=== PATIENT | female | born 1960 | race Caucasian/White ===

== ENCOUNTER → 2016-07-19 | Outpatient (CLI) | payer OTHER | LOC: WI 07:05 | PROVIDERS: ATTEND Physician Assistant | DX: Z12.31 Encounter for screening mammogram for malignant neoplasm of breast (principal) | CPT/HCPCS: 77067; G0202 ==

== ENCOUNTER 2016-08-14 07:15 | Day surgery (SDC) | payer OTHER ==
[2016-08-14] MEDS ORDERED: PROPOFOL INJ 200 MG/20 ML VIAL IV ONE (07:23)
[2016-08-14 08:50] VITALS: BP 100/77
--- NOTE | 2016-08-14 14:27 | Operative Report ---
Operative Report DATE OF SURGERY: 08/14/16 Operative Report: The risks, benefits and alternatives of the procedure including risks of bleeding, perforation requiring surgery are expected to the patient detail and informed consent is obtained. Patient is taken back to the endoscopy suite and placed in a left, lateral decubital position. Timeout is called. Propofol medication is administered. A rectal examination was done which did not reveal any masses, tears or fissures. An Olympus video scope was inserted into the patient's rectum. The scope was then gradually advanced all the way to the cecum. The cecum was identified by the usual anatomical landmarks including the ileocecal valve as well as the appendiceal office. Photodocumentation was obtained. The scope was then sequentially pulled back creative rest segments of the colon including the ascending colon, hepatic flexure, transverse colon, splenic flexure, descending colon and finally into the rectosigmoid portions of the colon. Retroflexion maneuvers performed. PREOPERATIVE DIAGNOSIS: Personal history of polyps POSTOPERATIVE DIAGNOSIS: Small sessile possibly hyperplastic polyp that is noted status post biopsy. Internal hemorrhoids OPERATION: Colonoscopy with biopsy SURGEON: ROBERT SOARES ANESTHESIA: LMAC TISSUE REMOVED OR ALTERED: As noted above. COMPLICATIONS: None. ESTIMATED BLOOD LOSS: none. INTRAOPERATIVE FINDINGS: As described above. PROCEDURE: Patient tolerated procedure well. No immediate postprocedure complications are noted. Patient is discharged in good condition. Discharge date 08/14/2016. Discharge diet: Regular. Discharge activity: Regular. 2-3 week discuss findings. Five-year surveillance colonoscopy. Patient is instructed to call the office or proceed to the emergency room should there be any further problems or questions. We'll await on pathology.
== END 2016-08-14 08:52 | disposition home or self-care (01) ==
LOC: END 07:15
PROVIDERS: ATTEND Internal Medicine Gastroenterology
PROC: 0DBM8ZX Excision of Descending Colon, Via Natural or Artificial Opening Endoscopic, Diagnostic (ICD-10-PCS; principal; 2016-08-14 08:00)
DX: K63.5 Polyp of colon (principal); K64.8 Other hemorrhoids; Z88.8 Allergy status to other drugs, medicaments and biological substances
CPT/HCPCS: 45380; 88305 ×2; J2704; 810

== ENCOUNTER 2019-05-13 17:56 | Observation (INO) | payer OTHER ==
--- NOTE | 2019-05-13 19:01 | ER Document Report ---
ED Medical Screen (RME) - General Chief Complaint: Nausea/Vomiting Stated Complaint: NAUSEA/VOMITING/ABDOMINAL PAIN Time Seen by Provider: 05/13/19 18:56 Primary Care Provider: PARESH PATEL PA [Primary Care Provider] - Follow up as needed Mode of Arrival: Wheelchair Information source: Patient Notes: 58-year-old female presented to ED for abdominal pain constipation and nausea. She states she went to the urgent care yesterday they put her on MiraLAX gave her some nausea medicine and did an x-ray of her abdomen. They told her if she did not have a bowel movement in 24 hours she needed to come back to the doctor's office. She has not had a bowel movement since she was seen yesterday and the doctor's office called her around 5:00 and told her to go to the emergency room because she not had a bowel movement. Patient states they told her they were afraid she had a bowel blockage. She has not had a bowel movement at all since yesterday she is urinating. She states she has not had any temperatures at home. I have greeted and performed a rapid initial assessment of this patient. A comprehensive ED assessment and evaluation of the patient, analysis of test results and completion of medical decision making process will be conducted by an additional ED providers. TRAVEL OUTSIDE OF THE [place] IN LAST 30 DAYS: No - Related Data Allergies/Adverse Reactions: fentanyl Allergy (Severe, Verified 05/13/19 18:56) hard to awaken, ams day after midazolam [From Versed] Allergy (Severe, Verified 05/13/19 18:56) hard to awaken, ams day after Past Medical History - Past Medical History Cardiac Medical History: Denies: Hx Coronary Artery Disease, Hx Heart Attack, Hx Hypertension Pulmonary Medical History: Denies: Hx Asthma, Hx Bronchitis, Hx COPD, Hx Pneumonia Neurological Medical History: Denies: Hx Cerebrovascular Accident, Hx Seizures Musculoskeltal Medical History: Denies Hx Arthritis - RHEUMATOID Past Surgical History: Denies: Hx Hysterectomy, Hx Pacemaker - Immunizations Hx Diphtheria, Pertussis, Tetanus Vaccination: Yes Physical Exam - Vital signs Vitals: Temp Pulse Resp BP Pulse Ox 98.9 F 88 16 110/71 95 05/13/19 18:42 05/13/19 18:42 05/13/19 18:42 05/13/19 18:42 05/13/19 18:42 Course - Vital Signs Vital signs: Temp Pulse Resp BP Pulse Ox 98.9 F 88 16 110/71 95 05/13/19 18:42 05/13/19 18:42 05/13/19 18:42 05/13/19 18:42 05/13/19 18:42 Doctor's Discharge - Discharge Referrals: PARESH PATEL PA [Primary Care Provider] - Follow up as needed
[2019-05-13 20:58] LABS: ABSOLUTE BASOPHILS # (AUTO) 0.1 10^3/uL (0.0-0.2); ABSOLUTE EOSINOPHILS # (AUTO) 0.3 10^3/uL (0.0-0.6); ABSOLUTE LYMPHOCYTES (AUTO) 2.4 10^3/uL (0.5-4.7); ABSOLUTE MONOCYTES (AUTO) 0.8 10^3/uL (0.1-1.4); ABSOLUTE NEUT (AUTO) 4.1 10^3/uL (1.7-8.2); EOSINOPHILS % (AUTO) 3.6 % (0-6); HEMATOCRIT 42.1 % (36.0-47.0); HEMOGLOBIN 14.2 g/dL (12.0-15.5); LYMPHOCYTES % (AUTO) 31.2 % (13-45); MEAN CORPUSCULAR HEMOGLOBIN 31.9 pg (27.0-33.4); MEAN CORPUSCULAR HGB CONC 33.8 g/dL (32.0-36.0); MEAN CORPUSCULAR VOLUME 95 fl (80-97); MONOCYTES % (AUTO) 10.9 % (3-13); PLATELET COUNT 349 10^3/uL (150-450); RED BLOOD COUNT 4.45 10^6/uL (3.72-5.28); SEGMENTED NEUTROPHILS % (AUTO) 53.3 % (42-78); TOTAL CELLS COUNTED % (AUTO) 100 %; WHITE BLOOD COUNT 7.6 10^3/uL (4.0-10.5)
[2019-05-13 21:09] LABS: ALBUMIN 4.2 g/dL (3.5-5.0); ALKALINE PHOSPHATASE 69 U/L (38-126); ANION GAP 11 (5-19); ASPARTATE AMINO TRANSFERASE 34 U/L (14-36); BILIRUBIN,DIRECT 0.2 mg/dL (0.0-0.4); BILIRUBIN,TOTAL 0.5 mg/dL (0.2-1.3); BLOOD UREA NITROGEN 13 mg/dL (7-20); CALCIUM 9.3 mg/dL (8.4-10.2); CARBON DIOXIDE 28 mmol/L (22-30); CHLORIDE 95 mmol/L (98-107); GLUCOSE 96 mg/dL (75-110); POTASSIUM 4.4 mmol/L (3.6-5.0); TOTAL PROTEIN 7.4 g/dL (6.3-8.2)
[2019-05-13 21:10] LABS: APPEARANCE,URINE CLEAR; BILIRUBIN,URINE NEGATIVE (NEGATIVE); COLOR,URINE YELLOW; GLUCOSE, URINE NEGATIVE (NEGATIVE); KETONES,URINE NEGATIVE (NEGATIVE); PROTEIN,URINE NEGATIVE (NEGATIVE); URINE SPECIFIC GRAVITY 1.017
--- NOTE | 2019-05-13 23:39 | RADIOLOGY REPORT (SQ) ---
EXAM DESCRIPTION: CT ABDOMEN PELVIS WITH IV CONTRAST COMPLETED DATE/TME: 05/13/2019 00:00 CLINICAL HISTORY: 58 years, Female, abdominal pain nause vomiting COMPARISON: None. TECHNIQUE: 434 Images stored on PACS. All CT scanners at this facility use dose modulation, iterative reconstruction, and/or weight based dosing when appropriate to reduce radiation dose to as low as reasonably achievable (ALARA). [facility]: Dose Right [facility]: CareDose [facility]: Dose Right [facility]: Teradose 4D [facility]: Wikirin LIMITATIONS: None. FINDINGS: Limited evaluation of the lung bases shows subsegmental atelectasis in each lung base. Osseous structures show pars defects at the L5-S1 level with grade 2 spondylolisthesis. Associated degenerative changes. Small hiatal hernia noted. The liver, spleen, adrenal glands, pancreas, kidneys are unremarkable. The gallbladder is present. Subjective gallbladder wall thickening with pericholecystic fluid and edema. Correlate for the possibility of cholecystitis. No evidence for bowel obstruction. No free air or free fluid. Normal appendix. IMPRESSION: Findings suspicious for acute cholecystitis. Small hiatal hernia. Pars defects at L5/S1 with grade 2 spondylolisthesis. TECHNICAL DOCUMENTATION: Quality ID # 436: Final reports with documentation of one or more dose reduction techniques (e.g., Automated exposure control, adjustment of the mA and/or kV according to patient size, use of iterative reconstruction technique) copyright 2011 [email or web address] [facility] [employer]- All Rights Reserved
[2019-05-14] MEDS ORDERED: NORMAL SALINE 1000 ML 1,000 ML IV ONE ×2 (02:51→04:48)
--- NOTE | 2019-05-14 03:56 | RADIOLOGY REPORT (SQ) ---
US ABDOMEN LIMITED HISTORY: RUQ abdominal pain COMPARISON: none TECHNIQUE: Real-time sonographic images of the right upper quadrant of the abdomen were obtained including color flow analysis. FINDINGS: The liver is normal in appearance and measures 13.1 cm in length. Imaged hepatic and portal veins are patent with normal directional flow. No intrahepatic or extrahepatic biliary ductal dilatation. 1.9-mm common hepatic duct. The gallbladder contains multiple mobile calculi and a thickened wall up to 7 mm with subserosal edema and perhaps trace pericholecystic fluid. Negative sonographic Kidd's sign. Visualized portions of the pancreas are unremarkable. The right kidney measures 9.7 cm in length. No obvious renal calculi but images are limited. No hydronephrosis. IMPRESSION: Cholelithiasis and probable cholecystitis. No biliary obstruction.
--- NOTE | 2019-05-14 04:07 | ER Document Report ---
ED General - General Chief Complaint: Constipation Stated Complaint: NAUSEA/VOMITING/ABDOMINAL PAIN Time Seen by Provider: 05/13/19 18:56 Primary Care Provider: PARESH PATEL PA [NO LOCAL MD] - Follow up as needed Mode of Arrival: Wheelchair Information source: Patient TRAVEL OUTSIDE OF THE [place] IN LAST 30 DAYS: No - HPI Onset: Other - over the last few days Onset/Duration: Gradual Quality of pain: Sharp Severity: Moderate Pain Level: 3 Associated symptoms: Nausea, Vomiting, Other - abdominal pain Exacerbated by: Other - food Relieved by: Other - not eating or drinking Similar symptoms previously: No Recently seen / treated by doctor: No Notes: 58 year old female with no significant PMH here for several days of abdominal pains, abdominal distention, decreased stool output, and nausea/vomiting. The patient was seen 2 days ago for the same symptoms and she was told she likely was constipated based on an Xray. The patient was treated with Miralax and she did not have much stool output so she was told to go to an ER to rule out an intestinal obstruction. The patient denies high fevers, chills, sweats. The patient has no history of gallbladder or kidney problems. - Related Data Allergies/Adverse Reactions: fentanyl Allergy (Severe, Verified 05/13/19 18:56) hard to awaken, ams day after midazolam [From Versed] Allergy (Severe, Verified 05/13/19 18:56) hard to awaken, ams day after Past Medical History - General Information source: Patient - Social History Smoking Status: Never Smoker Frequency of alcohol use: Occasional Drug Abuse: None Lives with: Family Family History: Reviewed & Not Pertinent Patient has suicidal ideation: No Patient has homicidal ideation: No - Past Medical History Cardiac Medical History: Denies: Hx Coronary Artery Disease, Hx Heart Attack, Hx Hypertension Pulmonary Medical History: Denies: Hx Asthma, Hx Bronchitis, Hx COPD, Hx Pneumonia Neurological Medical History: Denies: Hx Cerebrovascular Accident, Hx Seizures Musculoskeletal Medical History: Denies Hx Arthritis - RHEUMATOID Past Surgical History: Denies: Hx Hysterectomy, Hx Pacemaker - Immunizations Hx Diphtheria, Pertussis, Tetanus Vaccination: Yes Review of Systems - Review of Systems Constitutional: No symptoms reported EENT: No symptoms reported Cardiovascular: No symptoms reported Respiratory: No symptoms reported Gastrointestinal: Abdomen distended, Abdominal pain, Nausea, Vomiting, Constipation, Poor appetite Genitourinary: No symptoms reported Female Genitourinary: No symptoms reported Musculoskeletal: No symptoms reported Skin: No symptoms reported Hematologic/Lymphatic: No symptoms reported Neurological/Psychological: No symptoms reported -: Yes All other systems reviewed and negative Physical Exam - Vital signs Vitals: Temp Pulse Resp BP Pulse Ox 98.9 F 88 16 110/71 95 05/13/19 18:42 05/13/19 18:42 05/13/19 18:42 05/13/19 18:42 05/13/19 18:42 - Notes Notes: GENERAL: Well-appearing, well-nourished and in no acute distress. HEAD: Atraumatic, normocephalic. EYES: Pupils equal round and reactive to light, extraocular movements intact, sclera anicteric, conjunctiva are normal. ENT: TMs normal, nares patent, oropharynx clear without exudates. Moist mucous membranes. NECK: Normal range of motion, supple without lymphadenopathy or JVD. LUNGS: Breath sounds clear to auscultation bilaterally and equal. No wheezes rales or rhonchi. HEART: Regular rate and rhythm without murmurs, rubs or gallops. ABDOMEN: Soft, mild to moderate tenderness in RUQ, normoactive bowel sounds. No guarding, no rebound. No masses appreciated. EXTREMITIES: Normal range of motion, no pitting or edema. No clubbing or cyanosis. NEUROLOGICAL: Cranial nerves II through XII grossly intact. Normal speech, normal gait. PSYCH: Normal mood, normal affect. SKIN: Warm, Dry, normal turgor, no rashes or lesions noted. Course - Re-evaluation Re-evalutation: 05/14/19 04:47 The patient had lab work an abdominal/pelvis CT before I saw and evaluated her. Labs were unremarkable but CT showed signs of cholecystitis. Because the patient has normal labs and mild RUQ tenderness on exam, a follow up RUQ US was done which was in fact concerning for acute cholecystitis. Dr. Schneider of Surgery was consulted. Dr. Schneider saw the patient in the ER and he plans to remove her gallbladder today. Will given a dose of Zosyn in the ER. - Vital Signs Vital signs: Temp Pulse Resp BP Pulse Ox 97.9 F 72 20 113/75 96 05/14/19 03:36 05/14/19 03:36 05/14/19 03:36 05/14/19 03:36 05/14/19 03:36 - Laboratory Result Diagrams: 05/13/19 20:20 05/13/19 20:20 Laboratory results interpreted by me: 05/13/19 05/13/19 20:20 20:20 Sodium 133.6 L Chloride 95 L Urine Urobilinogen 2.0 H Urine Ascorbic Acid 40 H Discharge - Discharge Clinical Impression: Cholecystitis Condition: Stable Disposition: ADMITTED INPATIENT Admitting Provider: Surgicalist Unit Admitted: Surgical Floor Referrals: PARESH PATEL PA [NO LOCAL MD] - Follow up as needed
--- NOTE | 2019-05-14 04:38 | PDOC H&P ---
History of Present Illness Admission Date/PCP: RIGOBERTO COTTRELL Patient complains of: RUQ abdominal pain x 4 days History of Present Illness: MILKA BROWN is a 58 year old female, healthy with a 4 day hx of right upper quadrant abdominal pain, intense nausea, vomiting, who presented to the emergency room with above symptoms and underwent an ultrasound of the gallbladder revealing cholelithiasis with thickening of the gallbladder wall as per cholecystitis. Her blood work including CBC and CMP is within normal limits. Past Medical History Cardiac Medical History: Denies: Coronary Artery Disease, Myocardial Infarction, Hypertension Pulmonary Medical History: Denies: Asthma, Bronchitis, Chronic Obstructive Pulmonary Disease (COPD), Pneumonia Neurological Medical History: Denies: Seizures Musculoskeltal Medical History: Denies: Arthritis - RHEUMATOID Hematology: Denies: Anemia Past Surgical History Past Surgical History: Denies: Hysterectomy, Pacemaker Social History Smoking Status: Never Smoker Family History Family History: Reviewed & Not Pertinent Parental Family History Reviewed: No Children Family History Reviewed: No Sibling(s) Family History Reviewed.: No Medication/Allergy Home Medications: Fluticasone Propionate [Flonase Nasal [place] 50 Mcg/[place] 16 gm] 1 spray NASL DAILY 08/09/16 Multivit-Min/Iron Fum/Folic AC [Vkymv-Ffvoqhk-Kfgizoln Tablet] 1 tab PO DAILY 08/09/16 Ciprofloxacin HCl [Cipro 500 mg Tablet] 500 mg PO BID 08/14/16 Cranberry [Cranberry 1000 mg Capsule] 1,000 mg PO DAILY 08/14/16 Phenazopyridine HCl [Azo Urinary Pain Relief] 1 tab PO ASDIR PRN 08/14/16 Allergies/Adverse Reactions: fentanyl Allergy (Severe, Verified 05/13/19 18:56) hard to awaken, ams day after midazolam [From Versed] Allergy (Severe, Verified 05/13/19 18:56) hard to awaken, ams day after Physical Exam Vital Signs: Temp Pulse Resp BP Pulse Ox 97.9 F 72 20 113/75 96 05/14/19 03:36 05/14/19 03:36 05/14/19 03:36 05/14/19 03:36 05/14/19 03:36 Intake & Output 05/12/19 05/13/19 05/14/19 06:59 06:59 06:59 Weight 80.4 kg General appearance: PRESENT: no acute distress, thin, well-developed Head exam: PRESENT: atraumatic, normocephalic Eye exam: PRESENT: EOMI Mouth exam: PRESENT: moist, neck supple Neck exam: PRESENT: full ROM Respiratory exam: PRESENT: clear to auscultation prisca Cardiovascular exam: PRESENT: RRR GI/Abdominal exam: PRESENT: hypoactive bowel sounds, Kidd's sign - Positive, soft, tenderness - In the right upper quadrant Rectal exam: PRESENT: deferred Extremities exam: PRESENT: full ROM Musculoskeletal exam: PRESENT: full ROM Neurological exam: PRESENT: alert, awake, oriented to time, CN II-XII grossly intact Psychiatric exam: PRESENT: appropriate affect Skin exam: PRESENT: warm Results Laboratory Results: 05/13/19 20:20 05/13/19 20:20 05/13/19 05/13/19 05/13/19 20:20 20:20 20:20 WBC 7.6 RBC 4.45 Hgb 14.2 Hct 42.1 MCV 95 MCH 31.9 MCHC 33.8 RDW 13.0 Plt Count 349 Seg Neutrophils % 53.3 Sodium 133.6 L Potassium 4.4 Chloride 95 L Carbon Dioxide 28 Anion Gap 11 BUN 13 Creatinine 0.79 Est GFR ( Amer) > 60 Glucose 96 Calcium 9.3 Total Bilirubin 0.5 AST 34 Alkaline Phosphatase 69 Total Protein 7.4 Albumin 4.2 Lipase 146.4 Urine Color YELLOW Urine Appearance CLEAR Urine pH 5.0 Ur Specific [place] 1.017 Urine Protein NEGATIVE Urine Glucose (UA) NEGATIVE Urine Ketones NEGATIVE Urine Blood NEGATIVE Urine RBC (Auto) 1 Impressions: Abdomen/Pelvis CT 05/13/19 00:00 IMPRESSION: Findings suspicious for acute cholecystitis. Small hiatal hernia. Pars defects at L5/S1 with grade 2 spondylolisthesis. TECHNICAL DOCUMENTATION: Quality ID # 436: Final reports with documentation of one or more dose reduction techniques (e.g., Automated exposure control, adjustment of the mA and/or kV according to patient size, use of iterative reconstruction technique) copyright 2011 [employer] [facility] [employer]- All Rights Reserved Abdomen Ultrasound 05/14/19 02:50 IMPRESSION: Cholelithiasis and probable cholecystitis. No biliary obstruction. Assessment & Plan - Diagnosis (1) Cholelithiasis and cholecystitis without obstruction Qualifiers: Cholelithiasis location: gallbladder Cholecystitis acuity: chronic Qualified Code(s): K80.10 - Calculus of gallbladder with chronic cholecystitis without obstruction Is this a current diagnosis for this admission?: Yes - Plan Summary Plan Summary: Assessment: Right upper quadrant pain, nausea, vomiting for 4 days Blood work within normal limits Ultrasound of the gallbladder reveals cholelithiasis with gallbladder wall thickening expiratory cholecystitis Plan: Admit N.p.o. IV fluids Laparoscopic cystectomy, possible open, possible cholangiogram today
[2019-05-14] MEDS ORDERED: CEFOXITIN 1 GM/D5W RTU 1 GM/50 ML RTUPB IV PRN (04:45)
[2019-05-14] MEDS ORDERED: FAMOTIDINE INJ/PF 20 MG/2 ML SDV IV ONE (05:00)
[2019-05-14] MEDS: ACETAMINOPHEN 1,000 MG/100 ML RTUPB IV SCH ×2 (05:51→11:17)
[2019-05-14] MEDS: NORMAL SALINE 1000 ML 1,000 ML IV PRN ×2 (06:42→14:50)
--- NOTE | 2019-05-14 07:59 | EKG REPORT ---
SEVERITY:- BORDERLINE ECG - SINUS RHYTHM BORDERLINE T ABNORMALITIES, ANTERIOR LEADS : Confirmed by: Donna Samuel MD 14-May-2019 07:59:12
[2019-05-14] MEDS ORDERED: ONDANSETRON HCL INJ/PF 4 MG/2 ML SDV ONE (10:43)
[2019-05-14] MEDS ORDERED: GLYCOPYRROLATE 1 MG/5 ML VIAL ONE (10:43)
[2019-05-14] MEDS ORDERED: DEXAMETHASONE SOD PHOSPHATE INJ 4 MG/1 ML VIAL ONE (10:43)
[2019-05-14] MEDS ORDERED: ROCURONIUM BROMIDE INJ 50 MG/5 ML VIAL IV ONE (10:43)
[2019-05-14] MEDS ORDERED: LIDOCAINE 2% INJ-PF (20 MG/ML) 2 ML AMPUL ONE (10:43)
[2019-05-14] MEDS ORDERED: NEOSTIGMINE METHYLSULFATE 10 MG/10 ML VIAL ONE (10:43)
[2019-05-14] MEDS: ONDANSETRON HCL INJ/PF 4 MG/2 ML SDV IV PRN ×2 (11:17→20:29)
[2019-05-14] MEDS ORDERED: FENTANYL CITRATE INJ/PF 250 MCG/5 ML AMPULE ONE (15:45)
[2019-05-14] MEDS ORDERED: PROPOFOL INJ 200 MG/20 ML VIAL IV ONE (15:45)
[2019-05-14] MEDS ORDERED: MIDAZOLAM 2 MG/2 ML INJ ONE (15:56)
[2019-05-14] MEDS ORDERED: DEXTROSE IV ONE (16:03)
[2019-05-14] MEDS ORDERED: CEFOXITIN IV ONE (16:03)
[2019-05-14] MEDS: BUPIVACAINE HCL 0.25 % INJ/PF (2.5 MG/1 ML) 30 ML VIAL ONE ×2 (16:05→16:17)
[2019-05-14] MEDS ORDERED: CEFOXITIN 1 GM/D5W RTU 1 GM/50 ML RTUPB IV ONE (16:18)
[2019-05-14] MEDS ORDERED: PROMETHAZINE HCL INJ 25 MG/1 ML VIAL IV PRN (17:10)
[2019-05-14] MEDS ORDERED: FENTANYL CITRATE INJ/PF 100 MCG/2 ML AMPUL IV PRN (17:10)
[2019-05-14] MEDS ORDERED: MEPERIDINE HCL/PF INJ 25 MG/1 ML DISP.SYRIN IV PRN (17:10)
[2019-05-14] MEDS ORDERED: DIPHENHYDRAMINE HCL 50 MG/ML VIAL IV PRN (17:10)
[2019-05-14] MEDS ORDERED: MORPHINE SULFATE 10 MG/ML INJ IV PRN (17:10)
--- NOTE | 2019-05-14 17:17 | Operative Report ---
Nonrecallable Operative Report DATE OF SURGERY: 05/14/19 PREOPERATIVE DIAGNOSIS: Acute cholecystitis POSTOPERATIVE DIAGNOSIS: Same as above OPERATION: Laparoscopic cholecystectomy SURGEON: JACKIE BELTRAN ANESTHESIA: GA TISSUE REMOVED OR ALTERED: Gallbladder COMPLICATIONS: None apparent ESTIMATED BLOOD LOSS: Minimal PROCEDURE: Drains/implants: None. Procedure in detail: After informed consent was obtained, the patient was brought to the operating room and laid in the supine position. The area of the abdomen was prepped and draped in a normal sterile fashion. An incision was created in the supraumbilical position. Dissection was carried through the subcutaneous tissues using sharp and blunt dissection. The cicatrix was identified, grasped with a Sameer clamp, and retracted upwards. The linea alba fascia was incised sharply, the abdomen was entered sharply. The balloon trocar was inserted, and pneumoperitoneum was achieved. A subxiphoid 5 mm port was then placed under direct laparoscopic visualization. 2 more 5 mm ports were placed in the right upper quadrant in similar fashion. Atraumatic graspers were placed through the 5 mm ports. The gallbladder was retracted cephalad and laterally. Dissection was begun in the triangle of [place]. The gallbladder was acutely inflamed. Omentum was freed from the gallbladder using a mixture of sharp and blunt dissection. The cystic duct and cystic artery were then fully visualized and skeletonized, seeing the liver through the triangle. Once the critical view of safety was obtained, the cystic duct and cystic artery were then clipped and cut with laparoscopic instruments. The gallbladder was removed from the liver using Bovie electrocautery. The gallbladder was grasped with a large clamp, and pulled out through the umbilicus. The camera was reinserted. The hilum was inspected. It was found to be free of any leakage of blood or bile. Once this was confirmed, the 5 mm trochars were removed under direct laparoscopic visualization. The supraumbilical trocar was removed, and pneumoperitoneum was relieved. The supraumbilical fascia was closed using 0 Vicryl suture in [id number] fashion. The overlying skin was closed using 4-0 Vicryl Rapide suture in subcuticular fashion. All sponge, instrument, needle counts were correct x2. Condition: Stable.
[2019-05-14] MEDS ORDERED: ACETAMINOPHEN 1,000 MG/100 ML RTUPB IV ONE (18:15)
[2019-05-14] MEDS: HYDROCODONE/ACETAMINOPHEN 10-325 MG TABLET PO PRN (20:28)
[2019-05-14] MEDS ORDERED: FAMOTIDINE INJ/PF 20 MG/2 ML SDV IV SCH (22:00)
[2019-05-14] MEDS: FAMOTIDINE 20 MG TABLET PO SCH (22:09)
[2019-05-15] MEDS: HYDROCODONE/ACETAMINOPHEN 10-325 MG TABLET PO PRN ×2 (01:09→05:16)
[2019-05-15 04:57] LABS: HEMATOCRIT 40.7 % (36.0-47.0); MEAN CORPUSCULAR HEMOGLOBIN 32.3 pg (27.0-33.4); MEAN CORPUSCULAR HGB CONC 34.4 g/dL (32.0-36.0); MEAN CORPUSCULAR VOLUME 94 fl (80-97); PLATELET COUNT 317 10^3/uL (150-450); RED BLOOD COUNT 4.35 10^6/uL (3.72-5.28); WHITE BLOOD COUNT 9.9 10^3/uL (4.0-10.5)
[2019-05-15 05:17] LABS: ALBUMIN 4.1 g/dL (3.5-5.0); ALKALINE PHOSPHATASE 77 U/L (38-126); ANION GAP 8 (5-19); ASPARTATE AMINO TRANSFERASE 86 U/L (14-36); BILIRUBIN,DIRECT 0.3 mg/dL (0.0-0.4); BILIRUBIN,TOTAL 0.4 mg/dL (0.2-1.3); BLOOD UREA NITROGEN 5 mg/dL (7-20); CALCIUM 8.9 mg/dL (8.4-10.2); CARBON DIOXIDE 25 mmol/L (22-30); CHLORIDE 106 mmol/L (98-107); GLUCOSE 113 mg/dL (75-110); POTASSIUM 4.9 mmol/L (3.6-5.0); TOTAL PROTEIN 7.3 g/dL (6.3-8.2)
[2019-05-15] MEDS ORDERED: IBUPROFEN 800 MG TABLET PO SCH (08:00)
[2019-05-15 08:47] VITALS: BP 140/81
[2019-05-15] MEDS: FAMOTIDINE 20 MG TABLET PO SCH (09:06)
--- NOTE | 2019-05-15 09:17 | PDOC DISCHARGE SUMMARY ---
General - Admit/Disc Date/PCP Admission Date/Primary Care Provider: 05/14/19 05:08 RIGOBERTO COTTRELL Discharge Date: 05/15/19 - Discharge Diagnosis Final Diagnosis: Acute cholecystitis with cholelithiasis - Assessment Summary: The patient is a healthy 58-year-old female who presented to the emergency room on May 13, 2019 complaining of right upper quadrant pain and epigastric pain emesis. An ultrasound of the gallbladder was done revealing thickened gallbladder wall with cholelithiasis, her blood work was negative. She underwent uneventful laparoscopic cystectomy in May and her postop course was unremarkable. On the day of discharge May 15, 2019 the patient vital signs are stable, she had no complaints, she presented with flatus, her physical exam was unremarkable with abdomen soft, not distended, not tender, all incisions were clean, dry, and intact. Her blood work was within normal limits. Discharge orders: Home today May 15, 2019 Follow-up with your medical doctor within 1 to 2 weeks Follow-up with Dr. Marsh in the office in 2 weeks Regular diet Activity as tolerated without imitations Patient can drive, go up and down the stairs, and return to work when she feels Shower only for 2 weeks then the patient can tub bathe No wound care needed Resume home medications Tylenol only by mouth as needed for pain - Additional Information Resuscitation Status: Full Code Discharge Diet: Regular Discharge Activity: Activity As Tolerated, No tub bath - 2 weeks, she can shower anytime Referrals: PARESH PATEL PA [NO LOCAL MD] - Follow up as needed Home Medications: Acetaminophen [Acetaminophen Extra Strength] 1,000 mg PO Q4HP PRN 05/14/19 Alendronate Sodium 70 mg PO MO 05/14/19 Citalopram Hydrobromide [Celexa 20 mg Tablet] 20 mg PO DAILY 05/14/19 Cranberry Fruit [Cranberry] 1,000 mg PO DAILY 05/14/19 Ergocalciferol (Vitamin D2) [Drisdol 50,000 unit (1.25MG) Capsule] 50,000 unit PO LAWRENCE 05/14/19 Esomeprazole Magnesium [Nexium] 20 mg PO QAM 05/14/19 Multivitamin [Multiple Vitamins] 1 tab PO DAILY 05/14/19 Polyethylene Glycol 3350 [Miralax Powder 17 gm/Packet] 17 gm PO DAILY 05/14/19 Prempro 1 tab PO DAILY 05/14/19 History of Present Illiness History of Present Illness: MILKA BROWN is a 58 year old female, healthy with a 4 day hx of right upper quadrant abdominal pain, intense nausea, vomiting, who presented to the emergency room with above symptoms and underwent an ultrasound of the gallbladder revealing cholelithiasis with thickening of the gallbladder wall as per cholecystitis. Her blood work including CBC and CMP is within normal limits. Physical Exam Vital Signs: Temp Pulse Resp BP Pulse Ox 97.4 F 61 16 140/81 H 97 05/15/19 08:22 05/15/19 08:22 05/15/19 08:22 05/15/19 08:22 05/15/19 08:22 Intake & Output 05/14/19 05/15/19 05/16/19 06:59 06:59 06:59 Intake Total 2100 4550 Output Total 2820 Balance 2100 1730 Weight 80.4 kg 82.6 kg Results Laboratory Results: WBC 9.9 10^3/uL (4.0-10.5) 05/15/19 04:07 RBC 4.35 10^6/uL (3.72-5.28) 05/15/19 04:07 Hgb 14.0 g/dL (12.0-15.5) 05/15/19 04:07 Hct 40.7 % (36.0-47.0) 05/15/19 04:07 MCV 94 fl (80-97) 05/15/19 04:07 MCH 32.3 pg (27.0-33.4) 05/15/19 04:07 MCHC 34.4 g/dL (32.0-36.0) 05/15/19 04:07 RDW 13.0 % (11.5-14.0) 05/15/19 04:07 Plt Count 317 10^3/uL (150-450) 05/15/19 04:07 Lymph % (Auto) 31.2 % (13-45) 05/13/19 20:20 [place]te % (Auto) 10.9 % (3-13) 05/13/19 20:20 Eos % (Auto) 3.6 % (0-6) 05/13/19 20:20 Baso % (Auto) 1.0 % (0-2) 05/13/19 20:20 Absolute Neuts (auto) 4.1 10^3/uL (1.7-8.2) 05/13/19 20:20 Absolute Lymphs (auto) 2.4 10^3/uL (0.5-4.7) 05/13/19 20:20 Absolute Monos (auto) 0.8 10^3/uL (0.1-1.4) 05/13/19 20:20 Absolute Eos (auto) 0.3 10^3/uL (0.0-0.6) 05/13/19 20:20 Absolute Basos (auto) 0.1 10^3/uL (0.0-0.2) 05/13/19 20:20 Seg Neutrophils % 53.3 % (42-78) 05/13/19 20:20 Sodium 139.2 mmol/L (137-145) 05/15/19 04:07 Potassium 4.9 mmol/L (3.6-5.0) 05/15/19 04:07 Chloride 106 mmol/L (98-107) 05/15/19 04:07 Carbon Dioxide 25 mmol/L (22-30) 05/15/19 04:07 Anion Gap 8 (5-19) 05/15/19 04:07 BUN 5 mg/dL (7-20) L 05/15/19 04:07 Creatinine 0.64 mg/dL (0.52-1.25) 05/15/19 04:07 Est GFR ( Amer) > 60 (>60) 05/15/19 04:07 Est GFR (MDRD) Non-Af > 60 (>60) 05/15/19 04:07 Glucose 113 mg/dL (75-110) H 05/15/19 04:07 Calcium 8.9 mg/dL (8.4-10.2) 05/15/19 04:07 Total Bilirubin 0.4 mg/dL (0.2-1.3) 05/15/19 04:07 Direct Bilirubin 0.3 mg/dL (0.0-0.4) 05/15/19 04:07 Neonat Total Bilirubin Not Reportable 05/15/19 04:07 Neonat Direct Bilirubin Not Reportable 02/06/20 04:07 Neonat Indirect Bili Not Reportable 05/15/19 04:07 AST 86 U/L (14-36) H 05/15/19 04:07 ALT 59 U/L (<35) 05/15/19 04:07 Alkaline Phosphatase 77 U/L (38-126) 05/15/19 04:07 Total Protein 7.3 g/dL (6.3-8.2) 05/15/19 04:07 Albumin 4.1 g/dL (3.5-5.0) 05/15/19 04:07 Lipase 146.4 U/L (23-300) 05/13/19 20:20 Urine Color YELLOW 05/13/19 20:20 Urine Appearance CLEAR 05/13/19 20:20 Urine pH 5.0 (5.0-9.0) 05/13/19 20:20 Ur Specific Chester 1.017 05/13/19 20:20 Urine Protein NEGATIVE mg/dL (NEGATIVE) 05/13/19 20:20 Urine Glucose (UA) NEGATIVE mg/dL (NEGATIVE) 05/13/19 20:20 Urine Ketones NEGATIVE mg/dL (NEGATIVE) 05/13/19 20:20 Urine Blood NEGATIVE (NEGATIVE) 05/13/19 20:20 Urine Nitrite (Reflex) NEGATIVE (NEGATIVE) 05/13/19 20:20 Urine Bilirubin NEGATIVE (NEGATIVE) 05/13/19 20:20 Urine Urobilinogen 2.0 mg/dL (<2.0) H 05/13/19 20:20 Leukocyte Esterase Rfl NEGATIVE (NEGATIVE) 05/13/19 20:20 Urine RBC (Auto) 1 /HPF 05/13/19 20:20 Urine Bacteria (Auto) TRACE /HPF 05/13/19 20:20 Urine WBC (Reflex) 1 /HPF 05/13/19 20:20 Squamous Epi Cells Auto 1 /HPF 05/13/19 20:20 Urine Mucus (Auto) RARE /LPF 05/13/19 20:20 Urine Ascorbic Acid 40 (NEGATIVE) H 05/13/19 20:20 Impressions: Abdomen/Pelvis CT 05/13/19 00:00 IMPRESSION: Findings suspicious for acute cholecystitis. Small hiatal hernia. Pars defects at L5/S1 with grade 2 spondylolisthesis. TECHNICAL DOCUMENTATION: Quality ID # 436: Final reports with documentation of one or more dose reduction techniques (e.g., Automated exposure control, adjustment of the mA and/or kV according to patient size, use of iterative reconstruction technique) copyright 2011 [employer]- All Rights Reserved Abdomen Ultrasound 05/14/19 02:50 IMPRESSION: Cholelithiasis and probable cholecystitis. No biliary obstruction.
== END 2019-05-15 10:19 | disposition home or self-care (01) ==
LOC: ER 17:56 → EH 05-14 05:08 → INTOOBSV 05-14 05:08 → 3W 05-14 08:44
PROVIDERS: ATTEND Surgery
DX: K80.12 Calculus of gallbladder with acute and chronic cholecystitis without obstruction (principal); K44.9 Diaphragmatic hernia without obstruction or gangrene; K59.00 Constipation, unspecified; Z79.899 Other long term (current) drug therapy
CPT/HCPCS: 47562; 99285; 96360; 36415 ×2; 83690; 85025; 85027; 80053 ×2; 81001; 88304 ×2; 76705; 74177; 93005; 93010; 00790; G0378 ×2; J2250; J3490 ×3; J1100; J3010; J0694; J2710; J2405; J7030; J2704; S0028; J0131; 790

== ENCOUNTER 2019-07-09 16:45 | Emergency (ER) | payer OTHER ==
[2019-07-09 17:33] LABS: HEMATOCRIT 40.9 % (36.0-47.0); HEMOGLOBIN 14.3 g/dL (12.0-15.5); MEAN CORPUSCULAR HEMOGLOBIN 32.4 pg (27.0-33.4); MEAN CORPUSCULAR HGB CONC 34.8 g/dL (32.0-36.0); MEAN CORPUSCULAR VOLUME 93 fl (80-97); PLATELET COUNT 339 10^3/uL (150-450)
[2019-07-09 17:45] LABS: A TYPE INFLUENZA AG NEGATIVE (NEGATIVE); B INFLUENZA AG NEGATIVE (NEGATIVE)
[2019-07-09 17:54] LABS: ANION GAP 8 (5-19); BLOOD UREA NITROGEN 15 mg/dL (7-20); CALCIUM 9.4 mg/dL (8.4-10.2); CARBON DIOXIDE 22 mmol/L (22-30); CHLORIDE 107 mmol/L (98-107); GLUCOSE 96 mg/dL (75-110); POTASSIUM 4.3 mmol/L (3.6-5.0)
--- NOTE | 2019-07-09 18:05 | RADIOLOGY REPORT (SQ) ---
EXAM DESCRIPTION: CHEST SINGLE VIEW IMAGES COMPLETED DATE/TIME: 07/09/2019 5:53 pm REASON FOR STUDY: shortness of breath COMPARISON: None. EXAM PARAMETERS: NUMBER OF VIEWS: One view. TECHNIQUE: Single frontal radiographic view of the chest acquired. RADIATION DOSE: NA LIMITATIONS: None. FINDINGS: LUNGS AND PLEURA: Low lung volumes limits the examination. No acute pulmonary consolidat ion. No pneumothorax or pleural effusion. MEDIASTINUM AND HILAR STRUCTURES: No masses. Contour normal. HEART AND VASCULAR STRUCTURES: Heart normal in size. Normal vasculature. BONES: Dextroconvex scoliosis thoracic spine. HARDWARE: None in the chest. OTHER: No other significant finding. IMPRESSION: 1. Lung volumes limits the examination. NO ACUTE RADIOGRAPHIC FINDING IN THE CHEST. 2. Dextroconvex coal thoracic spine. TECHNICAL DOCUMENTATION: JOB ID: [id number] 2010 [employer]- All Rights Reserved Reading location - IP/workstation name: [email or web address]
--- NOTE | 2019-07-09 19:35 | ER Document Report ---
ED General - General Chief Complaint: Cough Stated Complaint: COUGH Time Seen by Provider: 07/09/19 18:11 Primary Care Provider: SPARKLE MCNAMARA FNP [Primary Care Provider] - Follow up as needed Notes: 58-year-old female presents emergency department complaining of increased cough for the past day associated with increasing shortness of breath. Patient states that she called telehealth and Dr. Little called her in a prescription for Tessalon Perles today. 1 week ago she was complaining of similar symptoms and dave julian called her in cefdinir for strep throat based off of the telehealth examination. Patient states she is not feeling any better. Patient does complain of right-sided chest pain that she states feels like a pleuritic stretching pain that is been going on since this morning. It is associated with rhinorrhea, postnasal drip and a dry cough. States her highest temperature has been 99.7. Denies any travel, does not have any known exposure to Covid-19 patients. TRAVEL OUTSIDE OF THE [place] IN LAST 30 DAYS: No - Related Data Allergies/Adverse Reactions: fentanyl Allergy (Severe, Verified 05/13/19 18:56) hard to awaken, ams day after midazolam [From Versed] Allergy (Severe, Verified 05/13/19 18:56) hard to awaken, ams day after Past Medical History - General Information source: Patient - Social History Smoking Status: Never Smoker Chew tobacco use (# tins/day): No Frequency of alcohol use: None Drug Abuse: None Family History: denies: CAD Patient has suicidal ideation: No Patient has homicidal ideation: No - Past Medical History Cardiac Medical History: Denies: Hx Coronary Artery Disease, Hx Heart Attack, Hx Hypertension Pulmonary Medical History: Denies: Hx Asthma, Hx Bronchitis, Hx COPD, Hx Pneumonia Neurological Medical History: Denies: Hx Cerebrovascular Accident, Hx Seizures Musculoskeletal Medical History: Denies Hx Arthritis - RHEUMATOID Psychiatric Medical History: Denies: Hx Depression Past Surgical History: Denies: Hx Hysterectomy, Hx Pacemaker - Immunizations Hx Diphtheria, Pertussis, Tetanus Vaccination: Yes Review of Systems - Review of Systems Constitutional: No symptoms reported EENT: See HPI Cardiovascular: See HPI Respiratory: See HPI Gastrointestinal: No symptoms reported -: Yes All other systems reviewed and negative Physical Exam - Notes Notes: GENERAL: Alert, interacts well. No acute distress. HEAD: Normocephalic, atraumatic EYES: Pupils equal, round and reactive to light, extraocular movements intact. ENT: Oral mucosa moist, tongue midline. NECK: Full range of motion, supple, trachea midline. LUNGS: Tory squeaking, no expiratory wheezing, no respiratory distress. HEART: Regular rate and rhythm, no murmurs, gallops, rubs. ABDOMEN: Soft, nontender, nondistended, bowel sounds present in all 4 quadrants. EXTREMITIES: Moves all 4 extremities spontaneously, no edema, radial and dorsalis pedis pulses 2/4 bilaterally. No cyanosis. NEUROLOGICAL: Alert and oriented x3, normal speech. PSYCH: Normal mood, normal affect. SKIN: Warm, Dry, normal turgor, no rashes or lesions noted. Course - Re-evaluation Re-evalutation: 07/09/19 21:09 CBC unremarkable, BMP unremarkable, troponin negative, flu and strep swabs are negative chest x-ray shows no acute process, there is market scoliosis which is a chronic finding. Patient was swabbed for the novel coronavirus. This testing will take 5 to 14 days to come back. Patient is aware of the need to self quarantine. Suspect this is likely a different viral process. Recommend that patient start taking the Tessalon Perles, continue using 2 puffs from the inhaler with spacer every 4 hours as needed. The chest pain is pleuritic and is likely coming from viral inflammation of the lungs. Patient will be discharged to home. - Laboratory Result Diagrams: 07/09/19 17:00 07/09/19 17:00 - EKG Interpretation by Me Additional EKG results interpreted by me: 07/09/19 21:10 EKG shows sinus rhythm rate of 69, normal axis, normal intervals, no ST segment elevations or depressions, no T wave inversions per my interpretation. Discharge - Discharge Clinical Impression: Pleuritic chest pain, Viral upper respiratory tract infection with cough Condition: Stable Disposition: HOME, SELF-CARE Additional Instructions: Today your chest x-ray did not show any signs of pneumonia. Your flu swabs were negative. I suspect your cough is coming from a viral infection. Your oxygen level is not so low that you need to be admitted. I would like you to use the inhaler with spacer that we gave you, 2 puffs every 4 hours as needed to decrease cough or improve your breathing. If you have to use it more often than every 4 hours, if simply walking across the room makes you feel like you are going to pass out or like you just walked up 2 flights of steps please return to the emergency department. Please let any healthcare personnel that you see know that you have been tested for coronavirus. This includes if you need to return to the emergency department. Please use nasal saline rinses such as a NetiPot or NeilMed Sinus Rinses. Please use nasal steroid such as Nasonex 1 squirt per nostril twice a day to d ecrease inflammation and swelling. Please also use [id number] decongestants according to their directions on the box such as Sudafed during the day and Benadryl at night. You were tested for coronavirus (COVID 19) but these results may take 7 days or more to come back. Please stay in your house until they are resulted back or until you have been completely symptom-free for at least 3 days. Prescriptions: Fluticasone Propionate [Flonase Nasal Spraggs 50 Mcg/Spraggs 16 gm] 1 spray NASL Q12 #1 inhaler Referrals: SPARKLE MCNAMARA FNP [Primary Care Provider] - Follow up as needed
[2019-07-09] MEDS ORDERED: ALBUTEROL SULFATE HFA (90 MCG/PUFF) 8 GM MDI (1 MDI/ER DISP) IH ONE (21:08)
[2019-07-09] MEDS ORDERED: BENZONATATE 100 MG CAPSULE PO ONE (21:08)
[2019-07-09] MEDS ORDERED: ALBUTEROL SULFATE HFA (90 MCG/PUFF) 8 GM MDI IH ONE (21:59)
[2019-07-09 23:12] VITALS: BP 120/82
--- NOTE | 2019-07-10 09:26 | EKG REPORT ---
SEVERITY:- NORMAL ECG - SINUS RHYTHM : Confirmed by: Toshia Mortensen 10-Jul-2019 09:25:40
== END 2019-07-09 22:55 | disposition home or self-care (01) ==
LOC: ER 16:45
DX: J06.9 Acute upper respiratory infection, unspecified (principal); B97.89 Other viral agents as the cause of diseases classified elsewhere; R07.81 Pleurodynia; R06.02 Shortness of breath; R05 Cough; J34.89 Other specified disorders of nose and nasal sinuses; R09.82 Postnasal drip; M41.9 Scoliosis, unspecified; Z88.6 Allergy status to analgesic agent; Z88.5 Allergy status to narcotic agent; Z88.4 Allergy status to anesthetic agent; Z20.828 Contact with and (suspected) exposure to other viral communicable diseases
CPT/HCPCS: 36415; 71045; 80048; 84484; 85027; 87070; 87635; 87804; 87880; 93005; 93010; 99283

== ENCOUNTER 2019-10-27 13:27 | Emergency (ER) | payer OTHER ==
--- NOTE | 2019-10-27 13:42 | ER Document Report ---
ED General - General Chief Complaint: Numbness of Arm Stated Complaint: LEFT ARM/LEG NUMBNESS Time Seen by Provider: 10/27/19 13:37 Primary Care Provider: SPARKLE MCNAMARA FNP [Primary Care Provider] - Follow up as needed Mode of Arrival: Ambulatory Information source: Patient Notes: 59-year-old female arrives PO through front door and through triage with her daughter. Actually patient walked in herself but by 1330 when she walked and began to have weakness of her left lower extremity. At 12 noon she began to have weakness and numbness of her left upper extremity. She has never experienced this before. She has had no high blood pressure in the past. She has had low blood sugar in the past. TRAVEL OUTSIDE OF THE [place] IN LAST 30 DAYS: No - HPI Onset: Just prior to arrival Onset/Duration: Sudden Quality of pain: No pain Severity: Mild Pain Level: 1 Associated symptoms: Weakness, Other - numbness Exacerbated by: Movement Relieved by: Denies Similar symptoms previously: No Recently seen / treated by doctor: No - Related Data Allergies/Adverse Reactions: fentanyl Allergy (Severe, Verified 05/13/19 18:56) hard to awaken, ams day after midazolam [From Versed] Allergy (Severe, Verified 05/13/19 18:56) hard to awaken, ams day after Past Medical History - General Information source: Patient - Social History Smoking Status: Never Smoker Cigarette use (# per day): No Chew tobacco use (# tins/day): No Smoking Education Provided: No Frequency of alcohol use: None Drug Abuse: None Lives with: Family Family History: Reviewed & Not Pertinent. denies: CAD Patient has suicidal ideation: No Patient has homicidal ideation: No - Past Medical History Cardiac Medical History: Denies: Hx Coronary Artery Disease, Hx Heart Attack, Hx Hypertension Pulmonary Medical History: Denies: Hx Asthma, Hx Bronchitis, Hx COPD, Hx Pneumonia Neurological Medical History: Denies: Hx Cerebrovascular Accident, Hx Seizures Musculoskeletal Medical History: Denies Hx Arthritis - RHEUMATOID Psychiatric Medical History: Denies: Hx Depression Past Surgical History: Denies: Hx Hysterectomy, Hx Pacemaker - Immunizations Hx Diphtheria, Pertussis, Tetanus Vaccination: Yes Review of Systems - Review of Systems Constitutional: See HPI, Weakness EENT: No symptoms reported Cardiovascular: No symptoms reported Respiratory: No symptoms reported Gastrointestinal: No symptoms reported Genitourinary: No symptoms reported Female Genitourinary: No symptoms reported Musculoskeletal: See HPI Skin: No symptoms reported Hematologic/Lymphatic: No symptoms reported Neurological/Psychological: No symptoms reported, Weakness - Patient radiology Weber: Add CT, Numbness Physical Exam - Vital signs Vitals: Temp Resp BP Pulse Ox 98.9 F 19 141/91 H 97 10/27/19 13:43 10/27/19 13:43 10/27/19 13:43 10/27/19 13:43 Interpretation: Normal - General General appearance: Appears well - HEENT Head: Normocephalic, Atraumatic Eyes: Normal Pupils: PERRL Mouth/Lips: Normal Mucous membranes: Normal Pharynx: Normal Neck: Normal - Respiratory Respiratory status: No respiratory distress Chest status: Nontender Breath sounds: Normal Chest palpation: Normal - Cardiovascular Rhythm: Regular Heart sounds: Normal auscultation Murmur: No - Abdominal Inspection: Normal Distension: No distension Bowel sounds: Normal Tenderness: Nontender Organomegaly: No organomegaly - Rectal Hemorrhoids: Other - deferred - Genitourinary Bimanuel exam: Other - deferred - Back Back: Normal - Extremities General upper extremity: Other - Left upper extremity without sensation or movement 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 Course - Vital Signs Vital signs: Temp Pulse Resp BP Pulse Ox 98.9 F 81 19 116/80 98 10/27/19 13:43 10/27/19 13:44 10/27/19 13:44 10/27/19 13:44 10/27/19 13:44 - Laboratory Result Diagrams: 10/27/19 13:45 10/27/19 13:45 Laboratory results interpreted by me: 10/27/19 13:45 RDW 14.4 H - Diagnostic Test Radiology reviewed: Reports reviewed - EKG Interpretation by Me EKG shows normal: Sinus rhythm Critical Care Note - Critical Care Note Comments: Radiologist Jimbo calls at [address] of head was negative. I spoke with Marcel at transfer center at 1353 for stroke alert. I again spoke with [facility] transfer center at 1404 and this was with Dr. House and he accepts the patient and advises TPA and will fly this patient to [facility]. Discharge - Discharge Clinical Impression: CVA (cerebral vascular accident) Qualifiers: CVA mechanism: unspecified Qualified Code(s): I63.9 - Cerebral infarction, unspecified Condition: Good Disposition: [facility] Referrals: SPARKLE MCNAMARA FNP [Primary Care Provider] - Follow up as needed
[2019-10-27 14:01] LABS: ABSOLUTE BASOPHILS # (AUTO) 0.1 10^3/uL (0.0-0.2); ABSOLUTE EOSINOPHILS # (AUTO) 0.1 10^3/uL (0.0-0.6); ABSOLUTE MONOCYTES (AUTO) 0.7 10^3/uL (0.1-1.4); ABSOLUTE NEUT (AUTO) 6.1 10^3/uL (1.7-8.2); BASOPHILS % (AUTO) 0.8 % (0-2); EOSINOPHILS % (AUTO) 1.4 % (0-6); HEMATOCRIT 44.2 % (36.0-47.0); HEMOGLOBIN 15.3 g/dL (12.0-15.5); LYMPHOCYTES % (AUTO) 22.1 % (13-45); MEAN CORPUSCULAR HEMOGLOBIN 32.5 pg (27.0-33.4); MEAN CORPUSCULAR HGB CONC 34.7 g/dL (32.0-36.0); MEAN CORPUSCULAR VOLUME 94 fl (80-97); MONOCYTES % (AUTO) 7.8 % (3-13); PLATELET COUNT 305 10^3/uL (150-450); RED BLOOD COUNT 4.71 10^6/uL (3.72-5.28); RED CELL DISTRIBUTION WIDTH 14.4 % (11.5-14.0); SEGMENTED NEUTROPHILS % (AUTO) 67.9 % (42-78); TOTAL CELLS COUNTED % (AUTO) 100 %
--- NOTE | 2019-10-27 14:02 | RADIOLOGY REPORT (SQ) ---
EXAM DESCRIPTION: CT HEAD WITHOUT IMAGES COMPLETED DATE/TIME: 10/27/2019 1:38 pm REASON FOR STUDY: STROKE ALERT COMPARISON: 08/26/2010 TECHNIQUE: Axial images acquired through the brain without intravenous contrast. Images reviewed wi th bone, brain and subdural windows. Additional sagittal and coronal reconstructions were generated. Images stored on PACS. All CT scanners at this facility use dose modulation, iterative reconstruction, and/or weight based d osing when appropriate to reduce radiation dose to as low as reasonably achievable (ALARA). [facility]: Dose Right [facility]: CareDose [facility]: Dose Right [facility]: Teradose 4D [facility]: Citrus RADIATION DOSE: mGy. LIMITATIONS: None. FINDINGS: VENTRICLES: Normal size and contour. CEREBRUM: No masses. No hemorrhage. No midline shift. No evidence for acute infarction. Normal gra y/white matter differentiation. No areas of low density in the white matter. CEREBELLUM: No masses. No hemorrhage. No alteration of density. No evidence for acute infarction. EXTRAAXIAL SPACES: No fluid collections. No masses. ORBITS AND GLOBE: No intra- or extraconal masses. Normal contour of globe without masses. CALVARIUM: No fracture. PARANASAL SINUSES: No fluid or mucosal thickening. SOFT TISSUES: No mass or hematoma. OTHER: No other significant finding. IMPRESSION: NORMAL BRAIN CT WITHOUT CONTRAST. EVIDENCE OF ACUTE STROKE: NO. COMMENT: Pertinent positive or negative findings of the imaging study reported as a CRITICAL EXAM tiffanie DOHERTY MD at13:42 on 10/27/2019. Category of Critical Exam: Stroke protocol. Quality ID # 436: Final reports with documentation of one or more dose reduction techniques (e.g., Au tomated exposure control, adjustment of the mA and/or kV according to patient size, use of iterative reconstruction technique) TECHNICAL DOCUMENTATION: JOB ID: [id number] 2010 [employer]- All Rights Reserved Reading location - IP/workstation name: [email or web address]
[2019-10-27] MEDS ORDERED: ALTEPLASE INJ 100 MG VIAL IV ONE (14:09)
[2019-10-27 14:18] LABS: ALBUMIN 4.6 g/dL (3.5-5.0); ALKALINE PHOSPHATASE 76 U/L (38-126); ANION GAP 9 (5-19); ASPARTATE AMINO TRANSFERASE 30 U/L (14-36); BILIRUBIN,TOTAL 0.5 mg/dL (0.2-1.3); BLOOD UREA NITROGEN 10 mg/dL (7-20); CALCIUM 9.7 mg/dL (8.4-10.2); CARBON DIOXIDE 23 mmol/L (22-30); CHLORIDE 101 mmol/L (98-107); CREATINE KINASE 69 U/L (30-135); GLUCOSE 114 mg/dL (75-110); POTASSIUM 4.2 mmol/L (3.6-5.0); TOTAL PROTEIN 7.6 g/dL (6.3-8.2)
--- NOTE | 2019-10-27 14:23 | RADIOLOGY REPORT (SQ) ---
EXAM DESCRIPTION: CHEST SINGLE VIEW IMAGES COMPLETED DATE/TIME: 10/27/2019 2:05 pm REASON FOR STUDY: STROKE ALERT COMPARISON: 10/27/2019 EXAM PARAMETERS: NUMBER OF VIEWS: One view. TECHNIQUE: Single frontal radiographic view of the chest acquired. RADIATION DOSE: NA LIMITATIONS: None. FINDINGS: LUNGS AND PLEURA: No opacities, masses or pneumothorax. No pleural effusion. MEDIASTINUM AND HILAR STRUCTURES: No masses. Contour normal. HEART AND VASCULAR STRUCTURES: Heart normal in size. Normal vasculature. BONES: Thoracic scoliosis with concavity toward the left. HARDWARE: None in the chest. OTHER: No other significant finding. IMPRESSION: NO ACUTE RADIOGRAPHIC FINDING IN THE CHEST. TECHNICAL DOCUMENTATION: JOB ID: [id number] 2010 [employer]- All Rights Reserved Reading location - IP/workstation name: [email or web address]
[2019-10-27 14:34] VITALS: BP 144/86
== END 2019-10-27 14:40 | disposition short-term general hospital (02) ==
LOC: ER 13:27
DX: I63.9 Cerebral infarction, unspecified (principal); G81.94 Hemiplegia, unspecified affecting left nondominant side; R20.0 Anesthesia of skin; Z88.6 Allergy status to analgesic agent; Z88.5 Allergy status to narcotic agent; Z88.8 Allergy status to other drugs, medicaments and biological substances
CPT/HCPCS: 99285; 96374; 36415; 82962; 82550; 85025; 80053; 84484; 71045; 70450; J2997

== ENCOUNTER 2020-01-01 09:40 | Emergency (ER) | payer OTHER ==
--- NOTE | 2020-01-01 10:08 | ER Document Report ---
ED General - General Chief Complaint: Shortness Of Breath Stated Complaint: SHORT OF BREATH,LEFT ARM/LEG WEAKNESS Time Seen by Provider: 01/01/20 09:47 Primary Care Provider: SPARKLE MCNAMARA FNP [Primary Care Provider] - Follow up as needed TRAVEL OUTSIDE OF THE [place] IN LAST 30 DAYS: No - HPI Notes: Chief complaint: Difficulty breathing and left-sided weakness History of present illness: 59-year-old female previously seen here by Dr. Miller and October of this year with sudden onset of some left-sided weakness and sent to [facility] for possible acute CVA apparently subsequently had an MRI and was determined to have a possible TIA. Since that time she has been on multiple medications including aspirin, atorvastatin and Toprol. She lives alone. She says that starting yesterday she had some dyspnea with exertion. No associated chest pain. She felt some generalized weakness however. This morning when she woke up she felt that she had some slight clumsiness and weakness of both left upper and lower extremity. She drove herself here. Says that her symptoms are waxing and waning in severity. Denies headache. Denies vomiting. Denies changes in speech, swallowing or vision. - Related Data Allergies/Adverse Reactions: fentanyl Allergy (Severe, Verified 05/13/19 18:56) hard to awaken, ams day after midazolam [From Versed] Allergy (Severe, Verified 05/13/19 18:56) hard to awaken, ams day after Past Medical History - General Information source: Patient, [facility] Records - Social History Smoking Status: Never Smoker Frequency of alcohol use: None Drug Abuse: None Lives with: Alone Family History: Reviewed & Not Pertinent. denies: CAD - Past Medical History Cardiac Medical History: Reports: None Denies: Hx Coronary Artery Disease, Hx Heart Attack, Hx Hypertension Pulmonary Medical History: Reports: None Denies: Hx Asthma, Hx Bronchitis, Hx COPD, Hx Pneumonia Neurological Medical History: Reports: Other - TIA. Denies: Hx Cerebrovascular Accident, Hx Seizures Endocrine Medical History: Denies: Hx Diabetes Mellitus Type 1, Hx Diabetes Mellitus Type 2 Musculoskeletal Medical History: Denies Hx Arthritis - RHEUMATOID Psychiatric Medical History: Denies: Hx Depression Past Surgical History: Reports: None. Denies: Hx Hysterectomy, Hx Pacemaker - Immunizations Hx Diphtheria, Pertussis, Tetanus Vaccination: Yes Review of Systems - Review of Systems Notes: Constitutional: Negative for fever. HENT: Negative for sore throat. Eyes: Negative for visual changes. Cardiovascular: Negative for chest pain. Respiratory: As per HPI. Gastrointestinal: Negative for abdominal pain, vomiting or diarrhea. Genitourinary: Negative for dysuria. Musculoskeletal: Negative for back pain. Skin: Negative for rash. Neurological: As per HPI. 10 point ROS negative except as marked above and in HPI. Physical Exam - Vital signs Vitals: Temp Pulse Resp BP Pulse Ox 99.4 F 81 16 123/78 100 01/01/20 09:49 01/01/20 09:49 01/01/20 09:49 01/01/20 09:49 01/01/20 09:49 - Notes Notes: GENERAL: Extremely anxious female patient of approximately stated age with very flat affect. SKIN: Good turgor no rashes. HEAD: Normocephalic atraumatic. EYES: PERRLA. EOMI. Conjunctivae and sclerae clear. EARS: CANALS AND TMS CLEAR. NOSE: CLEAR. MOUTH: Moist mucosa. Good dentition. No stridor or edema. No drooling. NECK: Supple. No masses or thyromegaly. No adenopathy. Carotids 2+ without bruits. No JVD. BACK: Symmetrical without tenderness. CHEST: Respirations unlabored. Breath sounds clear and symmetrical. HEART: Regular rhythm. No murmur gallop or rub. ABDOMEN: Soft nontender without masses, organomegaly or rebound. Bowel sounds normally active. No bruits. GENITALIA: Deferred. EXTREMITIES: No edema. No calf tenderness. Cap refill less than 1.5 seconds. Dorsalis pedis and posterior tibial pulses 3+ and symmetrical. NEUROLOGICAL: GCS 15. Alert and oriented x3. Patient sitting in a wheelchair. Fluent speech. Cranial nerves II through XII intact. Sensation is subjectively decreased over distal upper and lower extremity on the left. She has some equivocal motor drift of left upper and lower extremity. This is somewhat inconsistent on repeat examination. Normal tone. PSYCHIATRIC: Anxious with very flat affect. Course - Re-evaluation Re-evalutation: 01/01/20 10:26 Exam remains inconsistent. Noncontrast head CT reported as normal by radiologist. I am going to go ahead and get a CTA of head and neck. We will touch base with the patient's neurologist in [facility] [place] also. 01/01/20 12:20 CTA head and neck read as normal by the radiologist. I spoke with the office of Dr. Johnson the patient's neurologist at [facility] at 1215 hrs. Spoke with the nurse there and she told me that none of the doctors were available until after 1 PM. I was instructed to call back after 1 PM. Patient continues to show variable neurologic findings. I have requested MRI of the brain. 01/01/20 16:14 Brain MRI normal. Patient had a mild elevation of her d-dimer and complained of some dyspnea when she came in. We did a VQ scan of the chest that was negative for PE. We note this lady is moderately anemic with a hemoglobin of 10 g. I do not see any historical or exam evidence of acute bleeding. Her stool was heme- negative. She is not orthostatic. She notes that she has had problems with anemia in the past but currently is on no treatment for this. She had a negat karson colonoscopy about 2 years ago. I am going to place her on some iron and I think she is stable for outpatient follow-up. I have repeatedly tried to contact her neurologist and I keep getting recordings on her telephone line and no one is returning my call this afternoon. I think she can reasonably follow-up with him on her own as previously scheduled later this week. Findings, clinical impression and plan of treatment have been discussed with patient/family. Understanding of current findings and recommendations has been acknowledged by them and there is agreement regarding disposition and follow-up. - Vital Signs Vital signs: Temp Pulse Resp BP Pulse Ox 99.4 F 58 L 24 H 104/75 100 01/01/20 09:49 01/01/20 15:19 01/01/20 12:01 01/01/20 15:19 01/01/20 12:01 - Laboratory Result Diagrams: 01/01/20 10:15 01/01/20 10:15 Laboratory results interpreted by me: 01/01/20 01/01/20 01/01/20 10:15 10:15 10:15 Hgb 10.6 L Hct 32.9 L RDW 15.6 H Plt Count 507 H D-Dimer 1.29 H NT-Pro-B Natriuret Pep 194 H - Diagnostic Test Radiology reviewed: Reports reviewed - Noncontrast head CT per radiologist: Normal - EKG Interpretation by Me Additional EKG results interpreted by me: 01/01/20 10:24 Twelve-lead EKG reviewed by me contemporaneously: 1013 hrs. Indication for study: Possible stroke Rhythm: Normal sinus Rate: 73 Intervals: Normal QRS axis: Normal +[address]/T wave changes: None Comparison with prior tracing: No interval change since 07/09/2019 Interpretation: Normal EKG Discharge - Discharge Clinical Impression: Dyspnea, Transient ischemic attack Anemia Qualifiers: Anemia type: unspecified type Qualified Code(s): D64.9 - Anemia, unspecified Condition: Stable Disposition: HOME, SELF-CARE Additional Instructions: Contact your neurologist and your primary care physician tomorrow for early follow-up. Discontinue Toprol until you are seen by your neurologist for follow-up. Return here as needed for new or worsening symptoms: New or worsening symptoms Pain that is worsening or unimproved Uncontrolled vomiting High fever or shaking chills Overall worsening Prescriptions: Ferrous Sulfate [Feosol 325 mg Tablet] 325 mg PO DAILY #30 tab Referrals: SPARKLE MCNAMARA FNP [Primary Care Provider] - Follow up as needed
--- NOTE | 2020-01-01 10:22 | RADIOLOGY REPORT (SQ) ---
EXAM DESCRIPTION: CHEST SINGLE VIEW IMAGES COMPLETED DATE/TIME: 01/01/2020 10:12 am REASON FOR STUDY: Left side weakness COMPARISON: 10/27/2019 EXAM PARAMETERS: NUMBER OF VIEWS: One view. TECHNIQUE: Single frontal radiographic view of the chest acquired. RADIATION DOSE: NA LIMITATIONS: None. FINDINGS: LUNGS AND PLEURA: No opacities, masses or pneumothorax. No pleural effusion. MEDIASTINUM AND HILAR STRUCTURES: No masses. Contour normal. HEART AND VASCULAR STRUCTURES: Heart normal in size. Normal vasculature. BONES: No acute findings. HARDWARE: None in the chest. OTHER: No other significant finding. IMPRESSION: NO ACUTE RADIOGRAPHIC FINDING IN THE CHEST. TECHNICAL DOCUMENTATION: JOB ID: [id number] 2010 [employer]- All Rights Reserved Reading location - IP/workstation name: [email or web address]
[2020-01-01 10:23] LABS: ABSOLUTE BASOPHILS # (AUTO) 0.1 10^3/uL (0.0-0.2); ABSOLUTE EOSINOPHILS # (AUTO) 0.2 10^3/uL (0.0-0.6); ABSOLUTE LYMPHOCYTES (AUTO) 2.2 10^3/uL (0.5-4.7); ABSOLUTE MONOCYTES (AUTO) 0.8 10^3/uL (0.1-1.4); ABSOLUTE NEUT (AUTO) 3.5 10^3/uL (1.7-8.2); BASOPHILS % (AUTO) 1.1 % (0-2); EOSINOPHILS % (AUTO) 3.3 % (0-6); HEMATOCRIT 32.9 % (36.0-47.0); HEMOGLOBIN 10.6 g/dL (12.0-15.5); LYMPHOCYTES % (AUTO) 32.5 % (13-45); MEAN CORPUSCULAR HEMOGLOBIN 27.1 pg (27.0-33.4); MEAN CORPUSCULAR HGB CONC 32.1 g/dL (32.0-36.0); MEAN CORPUSCULAR VOLUME 85 fl (80-97); MONOCYTES % (AUTO) 11.3 % (3-13); PLATELET COUNT 507 10^3/uL (150-450); RED CELL DISTRIBUTION WIDTH 15.6 % (11.5-14.0); SEGMENTED NEUTROPHILS % (AUTO) 51.8 % (42-78); TOTAL CELLS COUNTED % (AUTO) 100 %; WHITE BLOOD COUNT 6.8 10^3/uL (4.0-10.5)
--- NOTE | 2020-01-01 10:24 | RADIOLOGY REPORT (SQ) ---
EXAM DESCRIPTION: CT HEAD WITHOUT IMAGES COMPLETED DATE/TIME: 01/01/2020 10:11 am REASON FOR STUDY: Left side weakness COMPARISON: 10/09/2019 TECHNIQUE: Axial images acquired through the brain without intravenous contrast. Images reviewed wi th bone, brain and subdural windows. Additional sagittal and coronal reconstructions were generated. Images stored on PACS. All CT scanners at this facility use dose modulation, iterative reconstruction, and/or weight based d osing when appropriate to reduce radiation dose to as low as reasonably achievable (ALARA). [facility]: Dose Right [facility]: CareDose [facility]: Dose Right [facility]: Teradose 4D [facility]: Chloe + Isabel RADIATION DOSE: mGy. LIMITATIONS: None. FINDINGS: VENTRICLES: Normal size and contour. CEREBRUM: No masses. No hemorrhage. No midline shift. No evidence for acute infarction. Normal gra y/white matter differentiation. No areas of low density in the white matter. CEREBELLUM: No masses. No hemorrhage. No alteration of density. No evidence for acute infarction. EXTRAAXIAL SPACES: No fluid collections. No masses. ORBITS AND GLOBE: No intra- or extraconal masses. Normal contour of globe without masses. CALVARIUM: No fracture. PARANASAL SINUSES: No fluid or mucosal thickening. SOFT TISSUES: No mass or hematoma. OTHER: No other significant finding. IMPRESSION: NORMAL BRAIN CT WITHOUT CONTRAST. EVIDENCE OF ACUTE STROKE: NO. COMMENT: Pertinent positive or negative findings of the imaging study reported as a CRITICAL EXAM tiffanie HAUSER MD at10:18 on 01/01/2020. Category of Critical Exam: Code stroke. Quality ID # 436: Final reports with documentation of one or more dose reduction techniques (e.g., Au tomated exposure control, adjustment of the mA and/or kV according to patient size, use of iterative reconstruction technique) TECHNICAL DOCUMENTATION: JOB ID: [id number] 2010 [employer]- All Rights Reserved Reading location - IP/workstation name: [email or web address]
[2020-01-01 10:33] LABS: D-DIMER 1.29 ug/mL (0.00-0.50)
[2020-01-01 10:42] LABS: INTERNATIONAL RATION (INR) 0.96
[2020-01-01 10:50] LABS: ALBUMIN 4.2 g/dL (3.5-5.0); ALKALINE PHOSPHATASE 65 U/L (38-126); ANION GAP 8 (5-19); ASPARTATE AMINO TRANSFERASE 34 U/L (14-36); BILIRUBIN,DIRECT 0.2 mg/dL (0.0-0.4); BILIRUBIN,TOTAL 0.6 mg/dL (0.2-1.3); BLOOD UREA NITROGEN 13 mg/dL (7-20); CALCIUM 9.7 mg/dL (8.4-10.2); CARBON DIOXIDE 25 mmol/L (22-30); CHLORIDE 106 mmol/L (98-107); CREATINE KINASE 53 U/L (30-135); GLUCOSE 104 mg/dL (75-110); POTASSIUM 4.6 mmol/L (3.6-5.0); TOTAL PROTEIN 6.7 g/dL (6.3-8.2)
[2020-01-01 11:26] LABS: CREATINE KINASE MB < 0.22 ng/mL (<4.55); TROPONIN I < 0.012 ng/mL
--- NOTE | 2020-01-01 12:13 | RADIOLOGY REPORT (SQ) ---
EXAM DESCRIPTION: CTA HEAD IMAGES COMPLETED DATE/TIME: 01/01/2020 12:03 pm REASON FOR STUDY: Left side weakness COMPARISON: None. TECHNIQUE: Post IV contrast scanning, thin section axial imaging through the brain to evaluate the a rterial structures. Source and MIP images are saved and reviewed on PACS. Advanced 3D imaging as volume-rendering, MIPs, SSD performed? yes All CT scanners at this facility use dose modulation, iterative reconstruction, and/or weight based d osing when appropriate to reduce radiation dose to as low as reasonably achievable (ALARA). [facility]: Dose Right [facility]: CareDose [facility]: Dose Right [facility]: Teradose 4D [facility]: [employer] CONTRAST TYPE AND DOSE: contrast/concentration: Isovue 350.00 mmol/ml; Total Contrast Delivered: 70. 0 ml; Total Saline Delivered: 75.0 ml RENAL FUNCTION: GFR > 60. LIMITATIONS: None. FINDINGS: [place]: The anterior, middle, posterior cerebral arteries are all patent. No ev idence of aneurysm or focal stenosis. POSTERIOR CIRCULATION: The distal vertebral arteries are patent as is the basilar artery. No aneurysm . BRAIN: No abnormal enhancement. BONES: Intact as visualized. SINUSES: No fluid levels. OTHER: No other significant finding. IMPRESSION: NO CTA EVIDENCE OF STENOSIS OR ANEURYSM OF THE [place]. TECHNICAL DOCUMENTATION: JOB ID: [id number] Quality ID # 436: Final reports with documentation of one or more dose reduction techniques (e.g., Au tomated exposure control, adjustment of the mA and/or kV according to patient size, use of iterative reconstruction technique) 2010 [employer]- All Rights Reserved Reading location - IP/workstation name: [email or web address]
--- NOTE | 2020-01-01 12:17 | RADIOLOGY REPORT (SQ) ---
EXAM DESCRIPTION: CTA NECK IMAGES COMPLETED DATE/TIME: 01/01/2020 12:03 pm REASON FOR STUDY: Left side weakness COMPARISON: None. TECHNIQUE: Axial dynamic scanning technique with dynamic contrast enhancement through the extra-scrap picker nial carotid and vertebral arteries. Multiplanar reconstruction. 3-D MIPS and Volume-rendered imag es acquired at the workstation and saved to PACS. Images are reviewed in soft tissue, bone, lung w indows. All CT scanners at this facility use dose modulation, iterative reconstruction, and/or weight based d osing when appropriate to reduce radiation dose to as low as reasonably achievable (ALARA). [facility]: Dose Right [facility]: CareDose [facility]: Dose Right [facility]: Teradose 4D [facility]: Smart [employer] RENAL FUNCTION: GFR > 60. LIMITATIONS: None. FINDINGS: AORTIC ARCH: Normal three-vessel origin. Bilateral subclavian arteries are patent. No d issection. RIGHT CAROTIDS: Patent common, internal and external carotid arteries without suggestion of significa nt stenosis or irregular plaque. No dissection. RIGHT VERTEBRAL: Patent. No dissection. LEFT CAROTIDS: Patent common, internal and external carotid arteries without suggestion of significan t stenosis or irregular plaque. No dissection. LEFT VERTEBRAL: Patent. No dissection. OTHER: No other significant finding. OTHER: 3-D reconstructions confirm findings. IMPRESSION: NORMAL CTA OF THE EXTRA-CRANIAL CAROTID AND VERTEBRAL ARTERIES. COMMENT: Quality ID #195: Measurements of distal internal carotid diameter were used as the denomina tor for stenosis measurement. TECHNICAL DOCUMENTATION: JOB ID: [id number] Quality ID # 436: Final reports with documentation of one or more dose reduction techniques (e.g., Au tomated exposure control, adjustment of the mA and/or kV according to patient size, use of iterative reconstruction technique) 2010 [employer]- All Rights Reserved Reading location - IP/workstation name: [email or web address]
--- NOTE | 2020-01-01 13:27 | RADIOLOGY REPORT (SQ) ---
EXAM DESCRIPTION: MRI HEAD WITHOUT IMAGES COMPLETED DATE/TIME: 01/01/2020 1:09 pm REASON FOR STUDY: Left side weakness COMPARISON: None. TECHNIQUE: Multiplanar imaging includes non-contrasted T1, T2, FLAIR, and diffusion with ADC map seq uences. Images stored on PACS. LIMITATIONS: Dental artifact. FINDINGS: ANATOMY: No anomalies. Normal vascular flow voids. Pituitary fossa normal. CSF SPACES: Normal in size and contour. No hemorrhage. CEREBRUM: Sulci and gyri normal in size and contour. No evidence of hemorrhage, mass, or extraaxial fluid collection. POSTERIOR FOSSA: No signal alteration. No hemorrhage. No edema, masses or mass effect. Internal jake tory canals, cerebello-pontine angles, mastoids normal. DIFFUSION IMAGING: Negative for acute or sub-acute infarction. ORBITS: No masses. Globes normal. PARANASAL SINUSES: No fluid levels. Mucosa normal. OTHER: No other significant finding. IMPRESSION: Normal brain. EVIDENCE OF ACUTE STROKE: NO. TECHNICAL DOCUMENTATION: JOB ID: [id number] 2010 [employer]- All Rights Reserved Reading location - IP/workstation name: [email or web address]
--- NOTE | 2020-01-01 14:40 | RADIOLOGY REPORT (SQ) ---
EXAM DESCRIPTION: NM LUNG PERFUSION SCAN IMAGES COMPLETED DATE/TIME: 01/01/2020 2:18 pm REASON FOR STUDY: Dyspnea and elevated d-dimer COMPARISON: Chest x-ray dated 01/01/2020. RADIONUCLIDE AND DOSE: 5.37 millicuries TC-99m MAA The route of agent administration: Intravenous TECHNIQUE: Eight views of the lungs acquired following injection of MAA. LIMITATIONS: None. FINDINGS: PERFUSION: Perfusion images with normal homogenous activity and no wedge-shaped or segment al defects. OTHER: No other significant finding. IMPRESSION: NORMAL PERFUSION LUNG SCAN. TECHNICAL DOCUMENTATION: JOB ID: [id number] 2010 [employer]- All Rights Reserved Reading location - IP/workstation name: [email or web address]
[2020-01-01 17:06] VITALS: BP 107/90
--- NOTE | 2020-01-01 21:59 | EKG REPORT ---
SEVERITY:- NORMAL ECG - SINUS RHYTHM : Confirmed by: Donna Samuel MD 01-Jan-2020 21:58:35
== END 2020-01-01 18:10 | disposition home or self-care (01) ==
LOC: ER 09:40
DX: G45.9 Transient cerebral ischemic attack, unspecified (principal); D64.9 Anemia, unspecified; R06.00 Dyspnea, unspecified; R06.02 Shortness of breath; M79.602 Pain in left arm; M62.81 Muscle weakness (generalized); F41.9 Anxiety disorder, unspecified; Z88.8 Allergy status to other drugs, medicaments and biological substances; Z79.82 Long term (current) use of aspirin; Z79.899 Other long term (current) drug therapy
CPT/HCPCS: 93005; 99285; 36415; 82553; 82550; 85025; 85610; 85730; 82270; 80053; 84484; 85379; 83880; 70551; 71045; 78580; 70450; 70496; 70498; 93010; A9540; Q9969

== ENCOUNTER 2020-01-26 12:14 | Emergency (ER) | payer OTHER ==
--- NOTE | 2020-01-26 12:33 | ER Document Report ---
ED Medical Screen (RME) - General Chief Complaint: S/S of Possible Stroke Stated Complaint: HEADACHE,WEAKNESS Time Seen by Provider: 01/26/20 12:27 Primary Care Provider: SPARKLE MCNAMARA FNP [Primary Care Provider] - Follow up as needed Mode of Arrival: Wheelchair Information source: Patient Notes: 59-year-old female presents to ED for weakness to the left side. She is dizzy headache started on the left and now is both sides. She does answer most questions appropriately has no facial droop she does have weakness to the left arm and leg she does have left palmar drift. She states she has had a TIA December 31 of this year and a stroke on October 26. 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 I have greeted and performed a rapid initial assessment of this patient. A comprehensive ED assessment and evaluation of the patient, analysis of test results and completion of medical decision making process will be conducted by an additional ED providers. TRAVEL OUTSIDE OF THE [place] IN LAST 30 DAYS: No - Related Data Allergies/Adverse Reactions: fentanyl Allergy (Severe, Verified 05/13/19 18:56) hard to awaken, ams day after midazolam [From Versed] Allergy (Severe, Verified 05/13/19 18:56) hard to awaken, ams day after Past Medical History - Past Medical History Cardiac Medical History: Denies: Hx Coronary Artery Disease, Hx Heart Attack, Hx Hypertension Pulmonary Medical History: Denies: Hx Asthma, Hx Bronchitis, Hx COPD, Hx Pneumonia Neurological Medical History: Denies: Hx Cerebrovascular Accident, Hx Seizures Endocrine Medical History: Denies: Hx Diabetes Mellitus Type 1, Hx Diabetes Mellitus Type 2 Musculoskeltal Medical History: Denies Hx Arthritis - RHEUMATOID Psychiatric Medical History: Denies: Hx Depression Past Surgical History: Denies: Hx Hysterectomy, Hx Pacemaker - Immunizations Hx Diphtheria, Pertussis, Tetanus Vaccination: Yes Doctor's Discharge - Discharge Referrals: SPARKLE MCNAMARA FNP [Primary Care Provider] - Follow up as needed
--- NOTE | 2020-01-26 13:06 | RADIOLOGY REPORT (SQ) ---
EXAM DESCRIPTION: CT HEAD WITHOUT IMAGES COMPLETED DATE/TIME: 01/26/2020 12:46 pm REASON FOR STUDY: Headache dizziness left-sided weakness COMPARISON: None. TECHNIQUE: Axial images acquired through the brain without intravenous contrast. Images reviewed wi th bone, brain and subdural windows. Additional sagittal and coronal reconstructions were generated. Images stored on PACS. All CT scanners at this facility use dose modulation, iterative reconstruction, and/or weight based d osing when appropriate to reduce radiation dose to as low as reasonably achievable (ALARA). [facility]: Dose Right [facility]: CareDose [facility]: Dose Right [facility]: Teradose 4D [facility]: Smart [employer] RADIATION DOSE: CT Rad equipment meets quality standard of care and radiation dose reduction techniq ues were employed. CTDIvol: 53.2 mGy. DLP: 1044 mGy-cm. mGy. LIMITATIONS: None. FINDINGS: VENTRICLES: Normal size and contour. CEREBRUM: No masses. No hemorrhage. No midline shift. No evidence for acute infarction. Normal gra y/white matter differentiation. No areas of low density in the white matter. CEREBELLUM: No masses. No hemorrhage. No alteration of density. No evidence for acute infarction. EXTRAAXIAL SPACES: No fluid collections. No masses. ORBITS AND GLOBE: No intra- or extraconal masses. Normal contour of globe without masses. CALVARIUM: No fracture. PARANASAL SINUSES: No fluid or mucosal thickening. SOFT TISSUES: No mass or hematoma. OTHER: No other significant finding. IMPRESSION: NORMAL BRAIN CT WITHOUT CONTRAST. EVIDENCE OF ACUTE STROKE: NO. COMMENT: Pertinent positive or negative findings of the imaging study reported as a CRITICAL EXAM tiffanie GARCES NP at13:00 on 01/26/2020. Category of Critical Exam: Stroke alert. Quality ID # 436: Final reports with documentation of one or more dose reduction techniques (e.g., Au tomated exposure control, adjustment of the mA and/or kV according to patient size, use of iterative reconstruction technique) TECHNICAL DOCUMENTATION: JOB ID: [id number] 2010 [employer]- All Rights Reserved Reading location - IP/workstation name: [email or web address]
--- NOTE | 2020-01-26 13:15 | RADIOLOGY REPORT (SQ) ---
EXAM DESCRIPTION: CHEST SINGLE VIEW IMAGES COMPLETED DATE/TIME: 01/26/2020 12:55 pm REASON FOR STUDY: Headache dizziness left-sided weakness COMPARISON: 01/01/2020 EXAM PARAMETERS: NUMBER OF VIEWS: One view. TECHNIQUE: Single frontal radiographic view of the chest acquired. RADIATION DOSE: NA LIMITATIONS: None. FINDINGS: LUNGS AND PLEURA: No opacities, masses or pneumothorax. No pleural effusion. MEDIASTINUM AND HILAR STRUCTURES: No masses. Contour normal. HEART AND VASCULAR STRUCTURES: Heart normal in size. Normal vasculature. BONES: Dextroconvex lateral curvature of the spine HARDWARE: None in the chest. OTHER: No other significant finding. IMPRESSION: NO ACUTE RADIOGRAPHIC FINDING IN THE CHEST. TECHNICAL DOCUMENTATION: JOB ID: [id number] 2010 [employer]- All Rights Reserved Reading location - IP/workstation name: [email or web address]
[2020-01-26 13:18] LABS: INTERNATIONAL RATION (INR) 1.01
[2020-01-26 13:19] LABS: PARTIAL THROMBOPLASTIN TIME 33.5 SEC (23.5-35.8); PROTHROMBIN TIME 13.5 SEC (11.4-15.4)
[2020-01-26 13:21] LABS: ABSOLUTE BASOPHILS # (AUTO) 0.1 10^3/uL (0.0-0.2); ABSOLUTE EOSINOPHILS # (AUTO) 0.2 10^3/uL (0.0-0.6); ABSOLUTE LYMPHOCYTES (AUTO) 2.1 10^3/uL (0.5-4.7); ABSOLUTE MONOCYTES (AUTO) 0.6 10^3/uL (0.1-1.4); ABSOLUTE NEUT (AUTO) 1.8 10^3/uL (1.7-8.2); BASOPHILS % (AUTO) 1.5 % (0-2); EOSINOPHILS % (AUTO) 4.8 % (0-6); HEMATOCRIT 37.4 % (36.0-47.0); HEMOGLOBIN 12.3 g/dL (12.0-15.5); LYMPHOCYTES % (AUTO) 43.6 % (13-45); MEAN CORPUSCULAR HEMOGLOBIN 29.1 pg (27.0-33.4); MEAN CORPUSCULAR HGB CONC 32.9 g/dL (32.0-36.0); MEAN CORPUSCULAR VOLUME 88 fl (80-97); MONOCYTES % (AUTO) 11.6 % (3-13); PLATELET COUNT 315 10^3/uL (150-450); RED BLOOD COUNT 4.24 10^6/uL (3.72-5.28); RED CELL DISTRIBUTION WIDTH 22.4 % (11.5-14.0); SEGMENTED NEUTROPHILS % (AUTO) 38.5 % (42-78); TOTAL CELLS COUNTED % (AUTO) 100 %; WHITE BLOOD COUNT 4.8 10^3/uL (4.0-10.5)
[2020-01-26 13:42] LABS: ALBUMIN 3.9 g/dL (3.5-5.0); ALKALINE PHOSPHATASE 78 U/L (38-126); ANION GAP 10 (5-19); ASPARTATE AMINO TRANSFERASE 35 U/L (14-36); BILIRUBIN,DIRECT 0.4 mg/dL (0.0-0.4); BILIRUBIN,TOTAL 0.8 mg/dL (0.2-1.3); BLOOD UREA NITROGEN 8 mg/dL (7-20); CALCIUM 9.8 mg/dL (8.4-10.2); CARBON DIOXIDE 24 mmol/L (22-30); CHLORIDE 105 mmol/L (98-107); CREATINE KINASE 37 U/L (30-135); GLUCOSE 85 mg/dL (75-110); POTASSIUM 4.1 mmol/L (3.6-5.0); TOTAL PROTEIN 6.4 g/dL (6.3-8.2)
[2020-01-26 13:53] LABS: CREATINE KINASE MB 0.33 ng/mL (<4.55)
[2020-01-26 13:58] LABS: TROPONIN I < 0.012 ng/mL
--- NOTE | 2020-01-26 14:41 | ER Document Report ---
ED General - General Chief Complaint: S/S of Possible Stroke Stated Complaint: HEADACHE,WEAKNESS Time Seen by Provider: 01/26/20 12:27 Primary Care Provider: SPARKLE MCNAMARA FNP [Primary Care Provider] - Follow up as needed Mode of Arrival: Wheelchair TRAVEL OUTSIDE OF THE [place] IN LAST 30 DAYS: No - HPI Notes: Patient is a 59-year-old female presents to the emergency department for evaluation. She states that last night she was bending over to get in to the lower shelf of her refrigerator. She had a sudden sharp and stabbing pain behind her left eye. She states it lasted about 20 seconds. She she reports associated ringing in her ears. She states that it resolved, then she had another stabbing pain. She states that her legs gave out from underneath her. She has had some weakness, but cannot tell me that it was anything beyond her legs. She states that she had "hazy vision" before this happened, but cannot give me a timeline on that either. She states that she does get headaches, this 1 being different only and that it has not resolved with Tylenol. She denies any head trauma. No difficulty speaking or swallowing. - Related Data Allergies/Adverse Reactions: fentanyl Allergy (Severe, Verified 05/13/19 18:56) hard to awaken, ams day after midazolam [From Versed] Allergy (Severe, Verified 05/13/19 18:56) hard to awaken, ams day after Home Medications: Alendronate, atorvastatin, vitamin D3, iron, aspirin Past Medical History - General Information source: Patient - Social History Smoking Status: Never Smoker Chew tobacco use (# tins/day): No Frequency of alcohol use: None Drug Abuse: None Family History: Reviewed & Not Pertinent. denies: CAD - Past Medical History Cardiac Medical History: Reports: Hx Hypercholesterolemia Denies: Hx Coronary Artery Disease, Hx Heart Attack, Hx Hypertension Pulmonary Medical History: Denies: Hx Asthma, Hx Bronchitis, Hx COPD, Hx Pneumonia Neurological Medical History: Denies: Hx Cerebrovascular Accident, Hx Seizures Endocrine Medical History: Denies: Hx Diabetes Mellitus Type 1, Hx Diabetes Mellitus Type 2 Musculoskeletal Medical History: Reports Hx Arthritis - RHEUMATOID, Reports Other - Osteoporosis Psychiatric Medical History: Denies: Hx Depression Past Surgical History: Denies: Hx Hysterectomy, Hx Pacemaker - Immunizations Hx Diphtheria, Pertussis, Tetanus Vaccination: Yes Review of Systems - Review of Systems Constitutional: See HPI EENT: See HPI Cardiovascular: No symptoms reported Respiratory: No symptoms reported Gastrointestinal: No symptoms reported Genitourinary: No symptoms reported Musculoskeletal: No symptoms reported Skin: No symptoms reported Neurological/Psychological: See HPI -: Yes All other systems reviewed and negative Physical Exam - Vital signs Vitals: Temp Pulse BP Pulse Ox 98.1 F 85 103/85 97 01/26/20 12:22 01/26/20 12:22 01/26/20 12:22 01/26/20 12:22 - Notes Notes: Vital signs reviewed, please refer to chart. Head is normocephalic, atraumatic. Pupils equal round, reactive to light. Neck is supple without meningismus. Heart is regular rate and rhythm. Lungs are clear to auscultation bilaterally. Abdomen is soft, nontender, normoactive bowel sounds throughout. Extremities without cyanosis, clubbing. Posterior calves are nontender. Peripheral pulses are equal. Skin is warm and dry. Patient is awake, alert, oriented x3. Cranial nerves II - XII are grossly intact without focal neurological deficits. Strength is plus 5 out of 5 right upper and lower extremity. She has 3 out of 5 strength left upper and left lower extremity, but intact reclaimer strength on the left hand. Sensation is intact. Reflexes symmetrical, with 2+ patellar reflexes, 1+ Achilles reflexes, 2+ biceps and brachioradialis reflexes bilaterally. Intact [id number], rapid alternating movements, [id number]. Course - Re-evaluation Re-evalutation: 01/26/20 14:40 Patient presents to the emergency department for evaluation of a headache and w eakness. She also complained of some tinnitus. Her exam is concerning for possible CVA with left-sided weakness. The patient's symptoms started last evening at approximately 2100, she is well outside of the window for any sort of intervention. Despite her weakness, her reflexes are currently symmetrical. Her CT scan is unremarkable. We will proceed with MRI at this time. 01/26/20 17:15 MRI has been ordered for some time. I did check on this, MRI will be performed. I went back into evaluate the patient at approximately 1640. At that point the patient states her left upper extremity weakness is entirely resolved. Her left lower extremity weakness has improved somewhat. She is had multiple TIAs, per the patient, that are similar to this. Still awaiting MRI. Otherwise patient is stable. 01/26/20 19:00 Patient has had complete resolution of symptoms. I had the opportunity to look back through this patient's visit history. She was flown out with a potential CVA in the past, given lytics. Since then she has had multiple recurrence of these. She is had normal MRI since then. She was seen by [facility] neurology, and is now being referred on to [facility] in March. She was on antiplatelet medications including aspirin and Plavix, these were stopped. She was taken off metoprolol because of low blood pressure. At this point, the patient is seeing cardiology. She has had a CAROLE. She has had carotid ultrasounds. She has had multiple MRIs. She is awaiting a loop recorder and a stress test. She has had multiple episodes of these exact symptoms that resolve on their own. It is unclear as to whether or not these are true TIAs, but that is the working diagnosis at this time. The patient is completely stable now, back to baseline, and comfortable with discharge. Patient's son is agreeable to this as well. She is told that it may be helpful to try and summarize this information for ED physicians in the future should it happen again. She voiced understanding. She is to return to the ED with worsening or new concerning symptoms of any sort. - Vital Signs Vital signs: Temp Pulse Resp BP Pulse Ox 98.1 F 85 103/85 95 01/26/20 12:22 01/26/20 12:22 01/26/20 12:22 01/26/20 13:07 - Laboratory Result Diagrams: 01/26/20 13:00 01/26/20 13:00 Laboratory results interpreted by me: 01/26/20 13:00 RDW 22.4 H Seg Neutrophils % 38.5 L - Diagnostic Test Radiology reviewed: Reports reviewed Radiology results interpreted by me: 01/26/20 19:02 Chest X-Ray 01/26/20 12:31 IMPRESSION: NO ACUTE RADIOGRAPHIC FINDING IN THE CHEST. Head CT 01/26/20 12:31 IMPRESSION: NORMAL BRAIN CT WITHOUT CONTRAST. EVIDENCE OF ACUTE STROKE: NO. Head MRI 01/26/20 14:35 IMPRESSION: No evidence of acute or subacute ischemic injury. Stable MR appearance of the brain. EVIDENCE OF ACUTE STROKE: NO. - EKG Interpretation by Me Additional EKG results interpreted by me: 01/26/20 14:41 Sinus mechanism with a rate of 73 bpm. Normal axis and intervals. Nonspecific T wave flattening diffusely. No acute ST elevation or depression concerning for ischemia or infarction. Discharge - Discharge Clinical Impression: TIA (transient ischemic attack) Condition: Stable Disposition: HOME, SELF-CARE Instructions: Transient Ischemic Attack ([facility]) Additional Instructions: No clear abnormality was found in your lab work or your imaging today. Your symptoms have resolved. Please follow-up with [facility] neurology as scheduled in March. Continue your home medications as prescribed. Follow-up with your primary care provider this week. Return to the emergency department with worsening or new concerning symptoms of any sort. Referrals: SPARKLE MCNAMARA FNP [Primary Care Provider] - Follow up as needed
--- NOTE | 2020-01-26 18:00 | RADIOLOGY REPORT (SQ) ---
EXAM DESCRIPTION: MRI HEAD WITHOUT IMAGES COMPLETED DATE/TIME: 01/26/2020 5:38 pm REASON FOR STUDY: headache, left sided weakness, eval for CVA COMPARISON: 01/26/2020, 01/01/2020 TECHNIQUE: Multiplanar imaging includes non-contrasted T1, T2, FLAIR, and diffusion with ADC map seq uences. Images stored on PACS. LIMITATIONS: None. FINDINGS: ANATOMY: No anomalies. Normal vascular flow voids. Pituitary fossa normal. CSF SPACES: Normal in size and contour. No hemorrhage. CEREBRUM: Sulci and gyri normal in size and contour. No evidence of hemorrhage, mass, or extraaxial fluid collection. POSTERIOR FOSSA: No signal alteration. No hemorrhage. No edema, masses or mass effect. Internal jake tory canals, cerebello-pontine angles, mastoids normal. DIFFUSION IMAGING: Negative for acute or sub-acute infarction. ORBITS: No masses. Globes normal. PARANASAL SINUSES: No fluid levels. Mucosa normal. OTHER: No other significant finding. IMPRESSION: No evidence of acute or subacute ischemic injury. Stable MR appearance of the brain. EVIDENCE OF ACUTE STROKE: NO. TECHNICAL DOCUMENTATION: JOB ID: [id number] 2010 [employer]- All Rights Reserved Reading location - IP/workstation name: [email or web address]
--- NOTE | 2020-01-26 18:48 | EKG REPORT ---
SEVERITY:- BORDERLINE ECG - SINUS RHYTHM BORDERLINE T ABNORMALITIES, DIFFUSE LEADS : Confirmed by: Jelani Cannon MD 26-Jan-2020 18:48:24
[2020-01-26 19:12] VITALS: BP 98/69
== END 2020-01-26 19:14 | disposition home or self-care (01) ==
LOC: ER 12:14
DX: G45.9 Transient cerebral ischemic attack, unspecified (principal); R51.9 Headache, unspecified; R53.1 Weakness; M81.0 Age-related osteoporosis without current pathological fracture; E78.00 Pure hypercholesterolemia, unspecified; Z79.899 Other long term (current) drug therapy; Z88.6 Allergy status to analgesic agent; Z88.5 Allergy status to narcotic agent; Z88.4 Allergy status to anesthetic agent
CPT/HCPCS: 36415; 70450; 70551; 71045; 80053; 82550; 82553; 84484; 85025; 85610; 85730; 93005; 93010; 99285

== ENCOUNTER 2020-03-21 13:58 | Emergency (ER) | payer OTHER ==
--- NOTE | 2020-03-21 14:05 | ER Document Report ---
ED Medical Screen (RME) - General Chief Complaint: Numbness of Face Stated Complaint: FACIAL NUMBNESS Time Seen by Provider: 03/21/20 14:00 Primary Care Provider: SPARKLE MCNAMARA FNP [Primary Care Provider] - Follow up as needed Mode of Arrival: Wheelchair Information source: Patient TRAVEL OUTSIDE OF THE [place] IN LAST 30 DAYS: No - HPI Notes: Patient is a 59 y/o female who presents for left sided weakness that has been intermittent since October. Daughter states patient has been seen by neurology but has not been diagnosed. Daughter states she began to have another episode this morning that began about 5 minutes after waking up but could not give an exact time. She has left sided weakness to her left upper and lower extremities. Daughter states the patient has been fatigued but denies any other preceding symptoms. - Related Data Allergies/Adverse Reactions: fentanyl Allergy (Severe, Verified 05/13/19 18:56) hard to awaken, ams day after midazolam [From Versed] Allergy (Severe, Verified 05/13/19 18:56) hard to awaken, ams day after Past Medical History - Past Medical History Cardiac Medical History: Reports: Hx Hypercholesterolemia Denies: Hx Coronary Artery Disease, Hx Heart Attack, Hx Hypertension Pulmonary Medical History: Denies: Hx Asthma, Hx Bronchitis, Hx COPD, Hx Pneumonia Neurological Medical History: Denies: Hx Cerebrovascular Accident, Hx Seizures Endocrine Medical History: Denies: Hx Diabetes Mellitus Type 1, Hx Diabetes Mellitus Type 2 Musculoskeltal Medical History: Reports Hx Arthritis - RHEUMATOID Psychiatric Medical History: Denies: Hx Depression Past Surgical History: Reports: Hx Cholecystectomy. Denies: Hx Hysterectomy, Hx Pacemaker - Immunizations Hx Diphtheria, Pertussis, Tetanus Vaccination: Yes Physical Exam - Neurological Motor strength normal: No: LUE, LLE Additional motor exam normals: Weakness. No: Equal electroencephalographic technician Course - Re-evaluation Re-evalutation: I have greeted and performed a rapid initial assessment of this patient. A comprehensive ED assessment and evaluation of the patient, analysis of test r esults and completion of medical decision making process will be conducted by an additional ED providers. Doctor's Discharge - Discharge Referrals: SPARKLE MCNAMARA FNP [Primary Care Provider] - Follow up as needed
--- NOTE | 2020-03-21 14:32 | RADIOLOGY REPORT (SQ) ---
EXAM DESCRIPTION: CHEST SINGLE VIEW IMAGES COMPLETED DATE/TIME: 03/21/2020 2:22 pm REASON FOR STUDY: left sided weakness COMPARISON: Chest radiographs 01/26/2020 EXAM PARAMETERS: NUMBER OF VIEWS: One view. TECHNIQUE: Single frontal radiographic view of the chest acquired. RADIATION DOSE: NA LIMITATIONS: None. FINDINGS: LUNGS AND PLEURA: Bibasilar scarring centrally by hypoventilated lungs. No new focal airs pace consolidation. MEDIASTINUM AND HILAR STRUCTURES: No masses. Contour normal. HEART AND VASCULAR STRUCTURES: Heart normal in size. Normal vasculature. BONES: No acute findings. HARDWARE: None in the chest. OTHER: Right upper quadrant surgical clips. IMPRESSION: Hypoventilated lungs. Otherwise, no acute pulmonary findings. TECHNICAL DOCUMENTATION: JOB ID: [id number] 2010 [employer]- All Rights Reserved Reading location - IP/workstation name: [email or web address]
--- NOTE | 2020-03-21 15:13 | RADIOLOGY REPORT (SQ) ---
EXAM DESCRIPTION: CT HEAD WITHOUT IMAGES COMPLETED DATE/TIME: 03/21/2020 2:36 pm REASON FOR STUDY: left sided weakness COMPARISON: CT head 11/26/2019 TECHNIQUE: Axial images acquired through the brain without intravenous contrast. Images reviewed wi th bone, brain and subdural windows. Additional sagittal and coronal reconstructions were generated. Images stored on PACS. All CT scanners at this facility use dose modulation, iterative reconstruction, and/or weight based d osing when appropriate to reduce radiation dose to as low as reasonably achievable (ALARA). [facility]: Dose Right [facility]: CareDose [facility]: Dose Right [facility]: Teradose 4D [facility]: Smart Invodo RADIATION DOSE: CT Rad equipment meets quality standard of care and radiation dose reduction techniq ues were employed. CTDIvol: 53.2 mGy. DLP: 991 mGy-cm. mGy. LIMITATIONS: None. FINDINGS: VENTRICLES: Normal size and contour. CEREBRUM: No masses. No hemorrhage. No midline shift. No evidence for acute infarction. Normal gra y/white matter differentiation. No areas of low density in the white matter. CEREBELLUM: No masses. No hemorrhage. No alteration of density. No evidence for acute infarction. EXTRAAXIAL SPACES: No fluid collections. No masses. ORBITS AND GLOBE: No intra- or extraconal masses. Normal contour of globe without masses. CALVARIUM: No fracture. PARANASAL SINUSES: Right maxillary sinus disease. SOFT TISSUES: No mass or hematoma. OTHER: No other significant finding. IMPRESSION: No acute intracranial findings. EVIDENCE OF ACUTE STROKE: NO. COMMENT: Quality ID # [id number]: Final reports with documentation of one or more dose reduction techniques (e.g., Automated exposure control, adjustment of the mA and/or kV according to patient size, use of iterative reconstruction technique) TECHNICAL DOCUMENTATION: JOB ID: [id number] 2010 [employer]- All Rights Reserved Reading location - IP/workstation name: [email or web address]
[2020-03-21 15:35] LABS: ABSOLUTE BASOPHILS # (AUTO) 0.1 10^3/uL (0.0-0.2); ABSOLUTE EOSINOPHILS # (AUTO) 0.3 10^3/uL (0.0-0.6); ABSOLUTE LYMPHOCYTES (AUTO) 2.1 10^3/uL (0.5-4.7); ABSOLUTE MONOCYTES (AUTO) 0.6 10^3/uL (0.1-1.4); ABSOLUTE NEUT (AUTO) 2.8 10^3/uL (1.7-8.2); BASOPHILS % (AUTO) 1.2 % (0-2); EOSINOPHILS % (AUTO) 4.5 % (0-6); HEMATOCRIT 38.9 % (36.0-47.0); HEMOGLOBIN 13.1 g/dL (12.0-15.5); MEAN CORPUSCULAR HEMOGLOBIN 30.2 pg (27.0-33.4); MEAN CORPUSCULAR HGB CONC 33.7 g/dL (32.0-36.0); MEAN CORPUSCULAR VOLUME 89 fl (80-97); MONOCYTES % (AUTO) 10.4 % (3-13); PLATELET COUNT 360 10^3/uL (150-450); RED BLOOD COUNT 4.36 10^6/uL (3.72-5.28); SEGMENTED NEUTROPHILS % (AUTO) 47.9 % (42-78); TOTAL CELLS COUNTED % (AUTO) 100 %; WHITE BLOOD COUNT 5.9 10^3/uL (4.0-10.5)
--- NOTE | 2020-03-21 15:41 | ER Document Report ---
ED Neuro Symptoms/Deficit - General Chief Complaint: Numbness of Face Stated Complaint: FACIAL NUMBNESS Time Seen by Provider: 03/21/20 14:00 Primary Care Provider: SPARKLE MCNAMARA FNP [Primary Care Provider] - Follow up tomorrow Mode of Arrival: Wheelchair Notes: Patient is a 59-year-old female who presents to the emergency department with facial numbness and left-sided weakness. Patient is unable to give a good history of what exactly happened, as she ends up turning towards her daughter to look at her. Daughter reports that the patient went out to do laundry with the daughter and they got back around noon. Patient ended up taking a nap and when she woke up she ended up having left-sided weakness. Patient history of having this in the past. Patient went to [place] and has seen a cementer machine, but has not had any answers as to why she is having these episodes. TRAVEL OUTSIDE OF THE [place] IN LAST 30 DAYS: No - Related Data Allergies/Adverse Reactions: fentanyl Allergy (Severe, Verified 03/21/20 15:04) hard to awaken, ams day after midazolam [From Versed] Allergy (Severe, Verified 03/21/20 15:04) hard to awaken, ams day after Past Medical History - General Information source: Patient - Social History Smoking Status: Never Smoker Family History: Reviewed & Not Pertinent. denies: CAD - Past Medical History Cardiac Medical History: Reports: Hx Hypercholesterolemia Denies: Hx Coronary Artery Disease, Hx Heart Attack, Hx Hypertension Pulmonary Medical History: Denies: Hx Asthma, Hx Bronchitis, Hx COPD, Hx Pneumonia Neurological Medical History: Denies: Hx Cerebrovascular Accident, Hx Seizures Endocrine Medical History: Denies: Hx Diabetes Mellitus Type 1, Hx Diabetes Mellitus Type 2 Musculoskeletal Medical History: Reports Hx Arthritis - RHEUMATOID Psychiatric Medical History: Denies: Hx Depression Past Surgical History: Reports: Hx Cholecystectomy. Denies: Hx Hysterectomy, Hx Pacemaker - Immunizations Hx Diphtheria, Pertussis, Tetanus Vaccination: Yes Review of Systems - Review of Systems -: Yes ROS unobtainable due to patient's medical condition Physical Exam - Vital signs Vitals: Temp Pulse Resp BP Pulse Ox 98.1 F 108 H 20 128/82 H 97 03/21/20 14:06 03/21/20 14:06 03/21/20 14:06 03/21/20 14:06 03/21/20 14:06 - Notes Notes: PHYSICAL EXAMINATION: GENERAL: Appears well, healthy, well-nourished, no acute distress. HEAD: Normocephalic, atraumatic. EYES: PERRL, conjunctiva normal, all extraocular movements intact, sclera nonicteric ENT: Moist mucous membranes. NECK: Supple, no noticeable swelling, redness, rash. Normal range of motion. LUNGS: Equal breath sounds bilaterally and clear to auscultation. No wheezes rales or rhonchi. CARDIOVASCULAR: S1-S2, regular rate, regular rhythm. Radial pulses 2+, normal. ABDOMEN: Normoactive bowel sounds. Soft, nontender, no guarding, no rebound tenderness, and no masses palpated. EXTREMITIES: Normal strength and range of motion, no pitting or edema. No c yanosis. NEUROLOGICAL: Left-sided weakness on upper and lower extremities. PSYCH: Flat affect, blank staring SKIN: Warm, dry. No rash, lesions, ulcerations noted. Normal skin turgor. Course - Re-evaluation Re-evalutation: 03/21/20 15:59 Dr. Garcia, my attending evaluated the patient. Patient will go to MRI. She is able to move her Left side, but it is weaker than the right. 03/21/20 18:54 MRI shows small vessel ischemia, I called Dr. Miranda, the radiologist to read the MRI. I asked if the MRI from her previous visit in January was different. She states that both of them are the same and there is no change. Patient has complete resolution of her symptoms. Advised the patient follow-up with her primary care provider and [place] in regards to this visit. She is in agreement with this plan. Follow-up precautions were given. Verbal discharge instructions were given to the patient. They verbalized understanding. They are stable for discharge. - Vital Signs Vital signs: Temp Pulse Resp BP Pulse Ox 98.1 F 108 H 20 113/81 97 03/21/20 14:06 03/21/20 14:06 03/21/20 18:33 03/21/20 18:33 03/21/20 18:33 - Laboratory Results Result Diagrams: 03/21/20 13:52 03/21/20 13:52 Laboratory Results Interpreted: 03/21/20 03/21/20 13:52 18:04 RDW 20.0 H Urine Ketones TRACE H Ur Leukocyte Esterase SMALL H Critical Laboratory Results Reviewed: No Critical Results - Radiology Results Critical Radiology Results Reviewed: No Critical Results Discharge - Discharge Clinical Impression: Left-sided weakness Condition: Stable Disposition: HOME, SELF-CARE Additional Instructions: You were seen today in the emergency department for left-sided weakness. Your symptoms resolved on their own, which is reassuring. Your MRI was stable and did not show any changes from your previous visit. Please make sure you make follow-up appointments with all your doctors/providers for follow-up. Please take it easy the next couple of days. Make sure you stay well-hydrated. Referrals: SPARKLE MCNAMARA FNP [Primary Care Provider] - Follow up tomorrow
[2020-03-21 15:45] LABS: ALBUMIN 3.8 g/dL (3.5-5.0); ALKALINE PHOSPHATASE 91 U/L (38-126); ANION GAP 5 (5-19); ASPARTATE AMINO TRANSFERASE 26 U/L (14-36); BILIRUBIN,TOTAL 0.2 mg/dL (0.2-1.3); BLOOD UREA NITROGEN 11 mg/dL (7-20); CALCIUM 9.4 mg/dL (8.4-10.2); CARBON DIOXIDE 25 mmol/L (22-30); CHLORIDE 107 mmol/L (98-107); GLUCOSE 88 mg/dL (75-110); POTASSIUM 4.1 mmol/L (3.6-5.0); TOTAL PROTEIN 6.3 g/dL (6.3-8.2)
--- NOTE | 2020-03-21 16:02 | ER Document Report ---
Doctor's Note Notes: 03/21/20 15:59 I was asked to see the patient by the KRIS. Patient is a 59-year-old female who presents with weakness. Patient is here with her daughter. Her daughter states that they went shopping today and then she became very tired. She took a nap around noon and when she woke up, the daughter states that she was slower to respond. She also complains of weakness to the left side. Of note, patient has been in this facility multiple times for this. She has had multiple CTAs, head scans, MRIs and they have all been negative. She is also been to many other facilities including [facility]. She is seen neurologists and cardiologists and no one has found any reason for the symptoms. She has been having the same intermittant symptoms for quite a while. On exam, patient is awake and alert. Is responsive. Patient was able to lift both her arms and her legs. She also had sensation to her bilateral face. She does seem to be slightly slower to respond. External ocular muscles are intact. As patient had extensive former work-up, recommended we obtain an MRI to rule out causes of the symptoms. Do not believe she requires a CT at this time as she has no localizing symptoms on my exam. She also had CTAs done a couple months ago that were completely normal. I do not believe patient is a TPA candidate. Her symptoms have been off and on.
[2020-03-21 16:11] LABS: ANISOCYTOSIS 2+; BURR CELLS SLIGHT
[2020-03-21 16:12] LABS: OVALOCYTES 1+; PLATELET CLUMPS PRESENT; PLATELET COMMENT ADEQUATE; SCHISTOCYTES SLIGHT
[2020-03-21 16:15] LABS: INTERNATIONAL RATION (INR) 0.94; PROTHROMBIN TIME 12.8 SEC (11.4-15.4)
[2020-03-21 16:16] LABS: PARTIAL THROMBOPLASTIN TIME 34.8 SEC (23.5-35.8)
--- NOTE | 2020-03-21 17:51 | RADIOLOGY REPORT (SQ) ---
EXAM DESCRIPTION: MRI HEAD WITHOUT IMAGES COMPLETED DATE/TIME: 03/21/2020 4:22 pm REASON FOR STUDY: Left sided weakness. COMPARISON: CT head same date. CT head 01/26/2020. TECHNIQUE: Multiplanar imaging includes non-contrasted T1, T2, FLAIR, and diffusion with ADC map seq uences. Images stored on PACS. LIMITATIONS: None. FINDINGS: ANATOMY: No anomalies. Normal vascular flow voids. Pituitary fossa normal. CSF SPACES: Normal in size and contour. No hemorrhage. CEREBRUM: Sulci and gyri normal in size and contour. Mild periventricular and patchy deep white gita er signal on FLAIR imaging. No evidence of hemorrhage, mass, or extraaxial fluid collection. POSTERIOR FOSSA: No signal alteration. No hemorrhage. No edema, masses or mass effect. Internal jake tory canals, cerebello-pontine angles, mastoids normal. DIFFUSION IMAGING: Negative for acute or sub-acute infarction. ORBITS: No masses. Globes normal. PARANASAL SINUSES: No fluid levels. Mucosa normal. OTHER: No other significant finding. IMPRESSION: No acute ischemia, intracranial mass or hemorrhage. Mild chronic small vessel ischemic change. EVIDENCE OF ACUTE STROKE: NO. TECHNICAL DOCUMENTATION: JOB ID: [id number] 2010 [employer]- All Rights Reserved Reading location - IP/workstation name: [email or web address]
[2020-03-21 18:19] LABS: APPEARANCE,URINE CLEAR; BILIRUBIN,URINE NEGATIVE (NEGATIVE); COLOR,URINE STRAW; GLUCOSE, URINE NEGATIVE (NEGATIVE); KETONES,URINE TRACE mg/dL (NEGATIVE); LEUKOCYTE ESTERASE,URINE SMALL (NEGATIVE); NITRITE,URINE NEGATIVE (NEGATIVE); PROTEIN,URINE NEGATIVE (NEGATIVE); URINE SPECIFIC GRAVITY 1.008; UROBILINOGEN,URINE NEGATIVE mg/dL (<2.0)
[2020-03-21 19:05] VITALS: BP 108/92
--- NOTE | 2020-03-22 00:16 | EKG REPORT ---
SEVERITY:- BORDERLINE ECG - SINUS RHYTHM PROBABLE LEFT ATRIAL ABNORMALITY BORDERLINE T ABNORMALITIES, DIFFUSE LEADS : Confirmed by: Toshia Mortensen 22-Mar-2020 00:14:48
== END 2020-03-21 19:05 | disposition home or self-care (01) ==
LOC: ER 13:58
DX: R20.0 Anesthesia of skin (principal); M62.81 Muscle weakness (generalized); I99.8 Other disorder of circulatory system; E78.00 Pure hypercholesterolemia, unspecified
CPT/HCPCS: 36415; 70450; 70551; 71045; 80053; 81001; 85025; 85610; 85730; 87086; 93005; 93010; 99285